=== PATIENT | male | born 1980 | race Caucasian/White ===

== ENCOUNTER 2019-08-29 18:16 | Outpatient (CLI) | payer BC, SELFPAY ==
[2019-08-29 18:51] LABS: Basophils Absolute Auto 0.08 K/mm3 (0.00-0.10); Basophils Percent Auto 0.7 % (0.0-1.0); Eosinophils Absolute Auto 0.21 K/mm3 (0.02-0.50); Eosinophils Percent Auto 1.9 % (1.0-6.0); Hematocrit 47.5 % (40.0-54.0); Hemoglobin 16.7 g/dL (14.0-18.0); Immature Granulocyte Absolute 0.05 K/mm3 (0.00-0.00); Immature Granulocyte Percent A 0.5 % (0.0-0.0); Lymphocytes Absolute Auto 1.81 K/mm3 (1.10-4.50); Lymphocytes Percent Auto 16.6 % (18.0-42.0); Mean Corpuscular HGB Conc 35.2 g/dL (32.0-36.0); Mean Corpuscular Hemoglobin 31.9 pg (27.0-31.0); Mean Corpuscular Volume 90.6 fL (78.0-102.0); Mean Platelet Volume 9.7 fl (8.7-11.0); Monocytes Absolute Auto 0.77 K/mm3 (0.10-0.90); Monocytes Percent Auto 7.1 % (2.0-11.0); Neutrophils Percent Auto 73.2 % (50.0-70.0); Platelet Count Result 252 K/mm3 (150-420); Red Blood Count 5.24 M/mm3 (4.70-6.10); Red Cell Distribution Width 12.2 % (11.6-14.4); White Blood Count 10.9 K/mm3 (4.8-10.8)
[2019-08-29 20:02] LABS: Alanine Aminotransferase 51 U/L (16-63); Albumin Level 3.7 g/dL (3.4-5.0); Alkaline Phosphatase 77 U/L (46-116); Anion Gap 14.9 mmol/L (7-16); Aspartate Amino Transferase 24 U/L (15-37); Bilirubin,Total 0.4 mg/dL (0.00-1.00); Blood Urea Nitrogen 13 mg/dL (7-18); Calcium 8.9 mg/dL (8.5-10.1); Carbon Dioxide 26 mmol/L (21-32); Chloride 103 mmol/L (98-108); Cholesterol 193 mg/dL (0-200); Estimated Glomerular Filt Rate > 60; Glucose 99 mg/dL (70-99); HDL Direct 46 mg/dL (40-60); LDL Cholesterol Calculated 115 mg/dL (<130); Osmolality Calculated 290 mOsm/kg (285-295); Potassium 3.9 mmol/L (3.5-5.1); Prostate Specific Antigen 0.7 ng/mL (< OR = 4.0); Sodium 140 mmol/L (136-145); Thyroid Stimulating Hormone 0.85 uIU/mL (0.36-3.74); Total Protein 7.1 g/dL (6.4-8.2); Triglycerides 161 mg/dL (0-150); Vitamin B12 1243 pg/mL (193-986)
[2019-09-03 12:39] LABS: Testosterone Free 83.5 pg/mL (35.0-155.0); Testosterone Total 580 ng/dL (250-1100)
[2019-09-07 19:09] LABS: Estradiol, Ultrasensitive 20 pg/mL (< OR = 29)
== END 2019-08-29 18:17 | disposition home or self-care (01) ==
LOC: CHSLAB 18:29
PROVIDERS: PCP Family Medicine; Visit Provider Family Medicine
DX: R53.83 Other fatigue (principal); I10 Essential (primary) hypertension; Z80.42 Family history of malignant neoplasm of prostate
CPT/HCPCS: 36415; 80053; 80061; 82607; 82670; 84153; 84402; 84403; 84443; 85025

== ENCOUNTER 2020-06-26 17:05 | Outpatient (CLI) | payer BC, SELFPAY ==
[2020-06-26 17:17] LABS: Basophils Absolute Auto 0.08 K/mm3 (0.00-0.10); Basophils Percent Auto 0.5 % (0.0-1.0); Eosinophils Absolute Auto 0.55 K/mm3 (0.02-0.50); Eosinophils Percent Auto 3.7 % (1.0-6.0); Hematocrit 48.6 % (40.0-54.0); Hemoglobin 16.6 g/dL (14.0-18.0); Immature Granulocyte Absolute 0.05 K/mm3 (0.00-0.00); Immature Granulocyte Percent A 0.3 % (0.0-0.0); Lymphocytes Absolute Auto 3.69 K/mm3 (1.10-4.50); Lymphocytes Percent Auto 25.1 % (18.0-42.0); Mean Corpuscular HGB Conc 34.2 g/dL (32.0-36.0); Mean Corpuscular Hemoglobin 31.3 pg (27.0-31.0); Mean Corpuscular Volume 91.7 fL (78.0-102.0); Mean Platelet Volume 9.6 fl (8.7-11.0); Monocytes Absolute Auto 1.25 K/mm3 (0.10-0.90); Monocytes Percent Auto 8.5 % (2.0-11.0); Neutrophils Absolute Auto 9.1 K/mm3 (1.7-7.2); Neutrophils Percent Auto 61.9 % (50.0-70.0); Platelet Count Result 289 K/mm3 (150-420); White Blood Count 14.7 K/mm3 (4.8-10.8)
[2020-06-26 18:25] LABS: Alanine Aminotransferase 36 U/L (16-63); Albumin Level 3.9 g/dL (3.4-5.0); Alkaline Phosphatase 82 U/L (46-116); Anion Gap 10 mmol/L (8-16); Aspartate Amino Transferase 17 U/L (15-37); Bilirubin,Total 0.6 mg/dL (0.00-1.00); Blood Urea Nitrogen 14 mg/dL (7-18); Calcium 9.5 mg/dL (8.5-10.1); Carbon Dioxide 26 mmol/L (21-32); Chloride 103 mmol/L (98-108); Cholesterol 210 mg/dL (0-200); Estimated Glomerular Filt Rate > 60; Glucose 91 mg/dL (70-99); HDL Direct 56 mg/dL (40-60); LDL Cholesterol Calculated 129 mg/dL (<130); Osmolality Calculated 288 mOsm/kg (285-295); Potassium 3.8 mmol/L (3.5-5.1); Sodium 139 mmol/L (136-145); Thyroid Stimulating Hormone 0.98 uIU/mL (0.36-3.74); Total Protein 7.5 g/dL (6.4-8.2); Triglycerides 126 mg/dL (0-150); Vitamin B12 755 pg/mL (193-986)
[2020-06-30 12:00] LABS: Testosterone Free 109.9 pg/mL (35.0-155.0); Testosterone Total 691 ng/dL (250-1100)
[2020-07-01 22:16] LABS: Estradiol, Ultrasensitive 28 pg/mL (< OR = 29)
== END 2020-06-26 17:06 | disposition home or self-care (01) ==
LOC: CHSLAB 17:08
PROVIDERS: PCP Family Medicine; Visit Provider Family Medicine
DX: E78.5 Hyperlipidemia, unspecified (principal); I10 Essential (primary) hypertension; R53.83 Other fatigue
CPT/HCPCS: 36415; 80053; 80061; 82607; 82670; 84402; 84403; 84443; 85025

== ENCOUNTER 2020-10-29 17:46 | Emergency (ER) | payer BC, SELFPAY ==
--- NOTE | ~2020-10-29 | CT_ITS ---
EXAMINATION: CT abdomen pelvis w con EXAM DATE: 10/29/2020 19:41 INDICATION: Epigastric pain since this morning. TECHNIQUE: Spiral CT of the abdomen and pelvis was performed following intravenous injection of 100 m L Omnipaque 350. Axial, coronal and sagittal images of the abdomen and pelvis were reviewed. The do se-length product (DLP) for this examination was 1075.45 mGy-cm. The exposure was tailored according to patient size (auto mA exposure control), and iterative reconstruction (ASIR) was used as addition al dose reduction technique. There is no prior study for comparison. FINDINGS: There is hyperdense retroperitoneal fluid, density suggests this is acute hemorrhage. This extends into the right colic gutter. It measures maximally 4 cm in thickness, by about [address] There is no active extravasation identified, however there is a 5 mm round arterially enhancing region which could be an arterial aneurysm located along the medial aspect of the pancreatic uncinate process, pancreatic duodenal branch. Finding has been indicated on axial image 70, coronal images 53 -55. Uncertain whether or not this is the source of hemorrhage. IVC still has maintained its caliber, and reportedly patient is not anemic. Small amount of free pelvic fluid with layering protein. Aorta is normal in caliber. The liver, spleen, adrenal glands and pancreas are unremarkable. Gallbla dder is unremarkable. No biliary obstruction. Portal and splenic veins are patent. Kidneys enhance symmetrically. There is no hydronephrosis. The prostate is unremarkable. The bladder is unremark able. There is no retroperitoneal or pelvic lymphadenopathy. There is mild scattered arteriosclero tic disease. Small bilateral inguinal fat-containing hernias. The appendix is normal. The stomach and small bowel are unremarkable. There is expected amount of c olonic stool. No free intraperitoneal gas. The heart is normal in size. There are no pericardial or pleural effusions. The lung bases are unremarkable. There are no osteoblastic or osteolytic les ions identified. 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 I discussed this case with Dontrell Tolbert MD at 10/29/2020 20:07 CDT. Reviewed, dictated and finalized at location A. 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 I discussed this case with Dontrell Tolbert MD at 10/29/2020 20:07 CDT.
--- NOTE | 2020-10-29 17:50 | ED.ABDPAIN ---
HPI - Abdominal Pain General Chief Complaint: Abdominal Pain Stated Complaint: abd pain Source: patient and RN notes reviewed Mode of arrival: ambulatory Limitations: no limitations History of Present Illness HPI narrative: patient states started about 430 this morning with upper abdominal pain. Said he would get cold and clammy when the pain came on but otherwise no shortness of breath or chest pain. Denies nausea vomiting diarrhea constipation. he has not tried to eat today as he just has not felt like it. MD elicited complaint: abdominal pain Pertinent past history: none Onset (ago): hour(s) (12) Pain Consistency: intermittent Location: RUQ Severity: moderate Radiation: none Migration to: no migration Exacerbating factors: nothing Relieving factors: nothing Associated symptoms: denies other symptoms Related Data Home Medications Medication Instructions Recorded Confirmed amoxicillin-pot clavulanate See Rx Instructions .ROUTE .COMPLEX 10/29/20 10/29/20 [Augmentin] anastrozole [Arimidex] 1 mg PO DAILY 10/29/20 10/29/20 losartan [Cozaar] See Rx Instructions .ROUTE .COMPLEX 10/29/20 10/29/20 Allergies Allergy/AdvReac Type Severity Reaction Status Date / Time No Known Allergies Allergy Verified 10/29/20 17:58 Review of Systems Review of Systems: All systems reviewed & are unremarkable except as noted in HPI and below Constitutional: Constitutional: Denies chills and Denies fever(s) Cardiovascular: Cardiovascular: Denies chest pain Respiratory: Respiratory: Denies dyspnea Gastrointestinal: Gastrointestinal: Denies constipation, Denies diarrhea, Denies nausea and Denies vomiting Genitourinary: Genitourinary: Denies dysuria and Denies urinary frequency [facility] Past Medical History Medical History (Updated 10/29/20 @ 21:13 by Dontrell Toblert MD) Hypertension Low testosterone in male Surgical History Surgical History (Updated 10/29/20 @ 18:17 by Dontrell Tolbert MD) History of tonsillectomy and adenoidectomy Social History Social History (Updated 10/29/20 @ 18:18 by Dontrell Tolbert MD) Smoking packs per day: 1 Smoking cigarettes per day: 20.0 Smoking status: Current every day smoker Tobacco type: cigarettes Alcohol intake: current Alcohol use details: daily Substance use: never Gender identity (if verbalized by the patient): Male Exam Const: General: healthy appearing and no acute distress Nutritional Appearance: well nourished and obese centrally obese Orientation/consciousness: patient oriented x3 HENMT: Head: normal to inspection Ears: external ears normal Eyes: Conjunctivae: conjunctivae normal Pupils: Equal, round and reactive pupils present EOM: EOMs intact bilaterally Neck: Neck: normal visual inspection Resp: Effort & Inspection: normal respiratory effort Auscultation: clear to auscultation bilaterally Cardio: Rate: regular rate Rhythm: regular rhythm GI: Inspection: obesity GI Palp: Yes Soft to palpation, Yes Tenderness to palpation present (GI) ( LUQ and RUQ moderate), No Guarding due to palpation present (GI) and No Rebound tenderness present Auscultation: normal bowel sounds Back/Spine/Pelvis: Cervical Spine: cervical ROM normal Thoracic/Lumbar Spine: thoraco-lumbar ROM normal Skin: General skin exam: normal color Rashes: no rashes Neuro: General: patient oriented x3, moves all extremities, no meningeal signs and no focal motor deficits Speech: normal speech Gait exam (Neuro): Normal gait present Extrem: General: normal to inspection and no clubbing, cyanosis or edema Psych: Appearance: grossly normal and well kempt Mental Status: mental status grossly normal Affect: normal affect Attitude: cooperative Thought content: Yes Normal thought content present Course Course Emergency Course: I spoke with Dr. Franklin, interventional radiologist. He spoke with hospitalist Dr. Booth who accepted the patient in transfer. Vital Signs Vital
[2020-10-29 17:55] VITALS: BP 156/90; PULSE 90; RESP 18; TEMP 37.2; O2SAT 97
[2020-10-29 18:16] LABS: Basophils Absolute Auto 0.07 K/mm3 (0.00-0.10); Basophils Percent Auto 0.5 % (0.0-1.0); Eosinophils Absolute Auto 0.08 K/mm3 (0.02-0.50); Eosinophils Percent Auto 0.5 % (1.0-6.0); Hemoglobin 14.3 g/dL (14.0-18.0); Immature Granulocyte Absolute 0.08 K/mm3 (0.00-0.00); Immature Granulocyte Percent A 0.5 % (0.0-0.0); Lymphocytes Absolute Auto 2.51 K/mm3 (1.10-4.50); Lymphocytes Percent Auto 16.6 % (18.0-42.0); Mean Corpuscular Hemoglobin 31.1 pg (27.0-31.0); Mean Corpuscular Volume 91.3 fL (78.0-102.0); Mean Platelet Volume 9.8 fl (8.7-11.0); Monocytes Absolute Auto 1.24 K/mm3 (0.10-0.90); Monocytes Percent Auto 8.2 % (2.0-11.0); Neutrophils Absolute Auto 11.1 K/mm3 (1.7-7.2); Neutrophils Percent Auto 73.7 % (50.0-70.0); Platelet Count Result 252 K/mm3 (150-420); Red Cell Distribution Width 12.3 % (11.6-14.4); White Blood Count 15.1 K/mm3 (4.8-10.8)
[2020-10-29 18:17] LABS: Add Urine Microscopic? YES; Appearance Urine Clear (Clear); Bilirubin Urine 1+ (Negative); Blood Urine Negative (Negative); Color Urine Yellow (Yellow); Glucose Urine UA Negative (Negative); Ketones Urine Negative (Negative); Leukocyte Esterase Ur Negative LEU/UL (Negative); Nitrate Urine Negative (Negative); Protein Urine 1+ (Negative); Specific Grav Ur >= 1.030 (1.010-1.020); Urobilinogen Urine 0.2 mg/dL (0.2-1.0)
[2020-10-29 18:23] LABS: Bacteria Urine Trace /hpf; Mucus Urine Moderate /lpf; RBC Urine 0-2 /hpf (0-2); Squamous Epithelial Cell Urine Rare /hpf (Few)
[2020-10-29 18:29] VITALS: BP 152/90; PULSE 90; RESP 18; O2SAT 96
[2020-10-29 18:33] LABS: Alanine Aminotransferase 40 U/L (16-63); Albumin Level 3.5 g/dL (3.4-5.0); Alkaline Phosphatase 71 U/L (46-116); Anion Gap 11 mmol/L (8-16); Aspartate Amino Transferase 13 U/L (15-37); Bilirubin,Total 0.6 mg/dL (0.00-1.00); Blood Urea Nitrogen 16 mg/dL (7-18); Calcium 8.6 mg/dL (8.5-10.1); Carbon Dioxide 25 mmol/L (21-32); Chloride 101 mmol/L (98-108); Estimated CRCL calculation 69 ml/min; Estimated Glomerular Filt Rate > 60; Glucose 107 mg/dL (70-99); Lipase 131 U/L (73-393); Osmolality Calculated 285 mOsm/kg (285-295); Potassium 3.2 mmol/L (3.5-5.1); Sodium 137 mmol/L (136-145)
[2020-10-29 18:38] LABS: Lactic Acid Reflex 1.2 mmol/L (0.4-2.0)
[2020-10-29] MEDS: MAG HYDROX/ALUMINUM HYD/SIMETH 30 ML, PHENobarb/HYOSCY/ATROPINE/SCOP 32.4 MG, LIDOCAINE... PO (18:53)
--- NOTE | 2020-10-29 20:20 | PC.NURSE ---
pt request [facility], called transfer line
[2020-10-29 21:35] VITALS: BP 152/96; PULSE 91; RESP 18; O2SAT 97
[2020-10-29 21:56] VITALS: BP 151/96; PULSE 92; RESP 18; TEMP 36.6; O2SAT 97
== END 2020-10-29 21:57 | disposition short-term general hospital (02) ==
PROVIDERS: Emergency Provider Emergency Medicine; PCP Family Medicine
DX: R58 Hemorrhage, not elsewhere classified (principal)
CPT/HCPCS: 36415; 74177; 80053; 81001; 83605; 83690; 85025; 86140; 99285; A9270; Q9967

== ENCOUNTER 2020-11-11 04:23 | Emergency (ER) | payer BC, SELFPAY ==
--- NOTE | ~2020-11-11 | CT_ITS ---
EXAMINATION: CT brain wo con DATE: 11/11/2020 05:47 INDICATION: Syncope and fall with head injury TECHNIQUE: Computed tomography (CT) of the head was performed without intravenous contrast. Sagittal and coronal reconstructions were performed. The mA was adjusted according to patient size. Iterative reconstruction technique was employed. The dose-length product was 605.33 mGy-cm. COMPARISON: None FINDINGS: Acute appearing right nasal bone fracture with up to 3 mm inward buckling of the fractured right nasa l bone. There also appears to be minimally displaced fracture along the anterior margin of the nasal septum with chronic rightward deviation of the septum. Old fracture of the superior rim of the left o rbit and anterior table of the left frontal sinus with malleable plate and screw fixation along the a nterior wall of the left frontal sinus. Mucosal thickening in the bilateral ethmoid sinuses. Small am ount of dependent mucus or blood in the left sphenoid sinus. No calvarial fracture. No acute intracranial hemorrhage, acute infarction or abnormal extra axial flu id collection. Ventricles are normal and symmetric. No mass/mass effect. Mastoid air cells and middle ear cavities are clear. IMPRESSION: 1. Acute appearing mildly depressed right nasal bone fracture and minimally displaced fracture at the anterior nasal septum. 2. No calvarial fracture or acute intracranial process. Reviewed, dictated and finalized at location A. IMPRESSION: 1. Acute appearing mildly depressed right nasal bone fracture and minimally dis placed fracture at the anterior nasal septum. 2. No calvarial fracture or acute intracranial process.
--- NOTE | ~2020-11-11 | CT_ITS ---
EXAMINATION: CTA abdomen pelvis DATE: 11/11/2020 05:48 INDICATION: Recent arterial aneurysm status post ablation, abdominal pain TECHNIQUE: Computed tomographic angiography (CTA) of the abdomen and pelvis was performed without and with 100 mL Omnipaque-350 intravenous contrast. Maximum intensity projection 3D-reconstructions of t he aorta and other arteries were constructed by the technologist on a separate workstation. The dose- length product (DLP) was 1414.21 mGy-cm. Automated exposure control and iterative reconstruction tech nique were employed. COMPARISON: None. FINDINGS: Minimal dependent atelectasis is present in the lung bases. The heart size is normal. A ralph cified left lower lobe nodule and calcified bilateral hilar and subcarinal lymph nodes are consistent with old granulomatous disease. Punctate calcifications in otherwise normal appearing liver and sple en likely represent healed granulomatous disease. The pancreas, gallbladder, kidneys, and adrenal gla nds are normal. There has been interval embolization of the pancreaticoduodenal artery. There is a pe rsistent retroperitoneal hematoma with interval decrease in size. There is calcified atherosclerosis of the aorta without hemodynamically significant stenosis. There is no aneurysm or dissection of the aorta. The celiac axis, superior mesenteric artery, and inferior mesenteric artery are unremarkable. Single renal arteries are present. There is mild atherosclerosis of the common iliac arteries without hemodynamically significant stenosis. There is mild atherosclerosis of the left femoral artery witho ut hemodynamically significant stenosis. No pathologically enlarged abdominal or pelvic lymph nodes a re identified. There is no free intraperitoneal gas or evidence of bowel obstruction. IMPRESSION: 1. Interval embolization of the pancreaticoduodenal artery with decrease in size of the retroperitone al hematoma. No acute findings. Reviewed, dictated and finalized at location A. IMPRESSION: 1. Interval embolization of the pancreaticoduodenal artery with decrease in siz e of the retroperitoneal hematoma. No acute findings.
[2020-11-11 04:35] VITALS: BP 101/69; PULSE 78; RESP 20; TEMP 36.6; O2SAT 100
--- NOTE | 2020-11-11 04:41 | ECG_ITS ---
Measurements Intervals [place] Rate: 75 P: 70 MI: 188 QRS: 15 QRSD: 116 T: 25 QT: 401 QTc: 448 Interpretive Statements SINUS RHYTHM INCOMPLETE RIGHT BUNDLE BRANCH BLOCK BORDERLINE ECG Electronically Signed On 11-12-2020 7:18:00 CDT by Kwadwo Osborne D.O.
[2020-11-11 04:45] VITALS: BP 99/69; PULSE 73
[2020-11-11 04:46] VITALS: BP 102/72; PULSE 83
--- NOTE | 2020-11-11 04:46 | ED.SYNCOPE ---
HPI - Syncope General Chief Complaint: Syncope Stated Complaint: Fall Time Seen by Provider: 11/11/20 04:46 Source: patient and family Mode of arrival: ambulatory Limitations: no limitations History of Present Illness HPI narrative: 39-year-old man comes in today complaining of lightheadedness and a fall that occurred early this morning. Patient states that he had been sitting out on his porch drinking alcohol when he stood up, walked over to the bug zapper to turn it off when he felt lightheaded, fell forward onto his face, and felt weak in his upper extremities such that he could not get himself up for several minutes. He denies numbness, tingling, difficulty walking, headache, vomiting, hematochezia, shortness of breath or chest pain. approximately 1 week ago the patient was seen for an abdominal aneurysm that was sent to [place] for coil embolization. He had a retroperitoneal bleed. MD complaint: almost passed out Onset (ago): hour(s) (1) -: minutes(s) Prodromal symptoms: lightheaded Witnessed: Yes - by Bystander Context: standing up Injuries sustained associated with event: face Current symptoms: weakness History: other ( Abdominal aneurysm status post coil ablation) Treatments prior to arrival: none Related Data Home Medications Medication Instructions Recorded Confirmed anastrozole [Arimidex] 1 mg PO DAILY 10/29/20 11/11/20 losartan [Cozaar] See Rx Instructions .ROUTE .COMPLEX 10/29/20 11/11/20 amlodipine 10 mg PO DAILY 11/11/20 11/11/20 Allergies Allergy/AdvReac Type Severity Reaction Status Date / Time No Known Allergies Allergy Verified 10/29/20 17:58 Review of Systems Constitutional: Constitutional: Denies chills, Denies fever(s) and Reports weakness Eyes: Eyes: Denies change in vision and Denies photophobia ENT: Denies dysphagia, Denies nasal congestion and Denies sore throat Cardiovascular: Cardiovascular: Denies chest pain and Denies radiating jaw, neck or arm pain Respiratory: Respiratory: Denies chest congestion, Denies cough and Denies dyspnea Gastrointestinal: Gastrointestinal: Denies abdominal pain, Denies diarrhea, Denies nausea and Denies vomiting Genitourinary: Genitourinary: Denies dysuria and Denies urinary frequency Musculoskeletal: Musculoskeletal: Denies arthralgias and Denies joint swelling Integumentary/Breasts: Skin/Breast: Denies pruritus, Denies erythema and Denies rash Neurologic: Reports as per HPI, Reports dizziness, Denies headache(s), Denies focal weakness and Denies numbness Hematologic/Lymphatic: Hematologic/Lymphatic: Denies easy bleeding and Denies easy bruising Allergic/Immunologic: Allergic/Immunologic: Denies lip swelling and Denies throat swelling PMFSH Past Medical History Medical History 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 Hypertension Low testosterone in male Surgical History Surgical History History of tonsillectomy and adenoidectomy Family History Family History (Updated 11/12/20 @ 00:42 by Dontrell Mcclellan MD) Other Family history non-contributory Social History Social History Smoking packs per day: 1 Smoking cigarettes per day: 20.0 Smoking status: Current every day smoker Tobacco type: cigarettes Alcohol intake: current Substance use: never Gender identity (if verbalized by the patient): Male Exam Const: General: healthy appearing, no acute distress and alert Orientation/consciousness: patient oriented x3 Limitations: no limitations HENMT: Head: contusion Ears: external ears normal, TM's normal bilaterally and EAC's normal General nose exam: Normal nares present and no epistaxis Face and sinus: no sinus tenderness Mouth: Yes moist mucous membranes Throat: posterior oropharynx normal Other: Abrasion, tenderness and swelling over the nasal bridge w
[2020-11-11 04:58] LABS: Basophils Absolute Auto 0.07 K/mm3 (0.00-0.10); Basophils Percent Auto 0.5 % (0.0-1.0); Eosinophils Absolute Auto 0.39 K/mm3 (0.02-0.50); Eosinophils Percent Auto 2.7 % (1.0-6.0); Hematocrit 36.5 % (40.0-54.0); Hemoglobin 12.3 g/dL (14.0-18.0); Immature Granulocyte Absolute 0.22 K/mm3 (0.00-0.00); Immature Granulocyte Percent A 1.5 % (0.0-0.0); Lymphocytes Absolute Auto 3.07 K/mm3 (1.10-4.50); Lymphocytes Percent Auto 21.1 % (18.0-42.0); Mean Corpuscular HGB Conc 33.7 g/dL (32.0-36.0); Mean Corpuscular Hemoglobin 31.1 pg (27.0-31.0); Mean Corpuscular Volume 92.4 fL (78.0-102.0); Monocytes Absolute Auto 1.08 K/mm3 (0.10-0.90); Monocytes Percent Auto 7.4 % (2.0-11.0); Neutrophils Absolute Auto 9.8 K/mm3 (1.7-7.2); Neutrophils Percent Auto 66.8 % (50.0-70.0); Platelet Count Result 380 K/mm3 (150-420); Red Blood Count 3.95 M/mm3 (4.70-6.10); Red Cell Distribution Width 12.3 % (11.6-14.4); White Blood Count 14.6 K/mm3 (4.8-10.8)
[2020-11-11] MEDS: SODIUM CHLORIDE 0.9% IV 1,000 ML 999 ML IV CONT (05:05)
[2020-11-11 05:12] LABS: Alanine Aminotransferase 29 U/L (16-63); Alkaline Phosphatase 79 U/L (46-116); Anion Gap 10 mmol/L (8-16); Aspartate Amino Transferase 18 U/L (15-37); Bilirubin,Total 0.2 mg/dL (0.00-1.00); Blood Urea Nitrogen 10 mg/dL (7-18); Calcium 8.6 mg/dL (8.5-10.1); Carbon Dioxide 26 mmol/L (21-32); Chloride 101 mmol/L (98-108); Estimated CRCL calculation 91 ml/min; Estimated Glomerular Filt Rate > 60; Glucose 118 mg/dL (70-99); Osmolality Calculated 284 mOsm/kg (285-295); Potassium 3.9 mmol/L (3.5-5.1); Prothrombin Time 10.5 Seconds (9.50-12.10); Sodium 137 mmol/L (136-145); Total Protein 7.2 g/dL (6.4-8.2)
[2020-11-11 05:17] LABS: Lactic Acid Reflex 2.1 mmol/L (0.4-2.0)
[2020-11-11 05:33] LABS: Appearance Urine Clear (Clear); Bilirubin Urine Negative (Negative); Color Urine Yellow (Yellow); Glucose Urine UA Negative (Negative); Ketones Urine Negative (Negative); Leukocyte Esterase Ur Negative LEU/UL (Negative); Nitrate Urine Negative (Negative); Protein Urine 1+ (Negative); Specific Grav Ur <= 1.005 (1.010-1.020); Urobilinogen Urine 0.2 mg/dL (0.2-1.0)
[2020-11-11 05:39] LABS: Add Urine Microscopic? YES; Blood Urine Trace-Intact (Negative)
[2020-11-11 05:40] LABS: Bacteria Urine 3+ /hpf; RBC Urine 0-2 /hpf (0-2); Squamous Epithelial Cell Urine None seen /hpf (Few); WBC Urine 0-3 /hpf (0-3)
[2020-11-11 05:42] LABS: Troponin I < 4.0 ng/L (0.00-60.4)
[2020-11-11 06:32] VITALS: BP 123/79; PULSE 84; RESP 18; O2SAT 99
--- NOTE | 2020-11-11 06:44 | PC.NURSE ---
Call placed to [facility] Hospitalist or surgeon. Pts. states his that did his surgery repair 2 wks ago is located here and requests to transfer here if needed.
--- NOTE | 2020-11-11 07:19 | PC.NURSE ---
Call back from [facility], will await call from hospitalist. Report given to Namrata Martinez
--- NOTE | 2020-11-11 07:32 | PC.NURSE ---
Call back from [facility]. Dr Giordano, speaking c Dr. Mcclellan. Will call back p looking at CT that was pushed to them.
[2020-11-11 07:53] LABS: Reflex Lactic Acid Yes or No Add Lactic
--- NOTE | 2020-11-11 08:09 | PC.NURSE ---
Call back from radiologist at [facility], Spoke c Dr Mcclellan about CT report and orders received. ERP spoke c pt. about admission for obs. due to syncopal episode. Pt. refusing to stay even p ERP spoke c pt. and risks/benefits explained. Pt. adamet about leaving and going home, wants paperwork to sign.
--- NOTE | 2020-11-11 08:19 | ED.SYNCOPE ---
HPI - Syncope General Chief Complaint: Syncope Stated Complaint: Fall Time Seen by Provider: 11/11/20 04:46 Source: patient and family Mode of arrival: ambulatory Limitations: no limitations History of Present Illness HPI narrative: This gentleman came in after a syncopal episode. He was seen initially and evaluated by Dr. Sanchez. He had a syncopal episode minutes before coming in. He had been drinking alcohol and atates she had a brief syncopal episode when bending over to unplug a light. He told me the episode lasted very briefly: seconds long. He had told Dr. Sanchez this lasted much longer, and he was not moving well for some minutes. It is unclear as to if he was significantly impaired at the time of the syncope, such that he cannot give an accurate history. He states he has felt presyncopal of and on at times, prior to coming in. He denies feeling his heart racing or other symptoms such as shortness of breath, chest pain, cough, fever, chills, feeling the need to have a bowel movement or straining to fart, or have a BM. He does state he was just started on Norvasc for hypertension. MD complaint: almost passed out Prodromal symptoms: lightheaded Context: standing up Injuries sustained associated with event: face Current symptoms: weakness Treatments prior to arrival: none Related Data Home Medications Medication Instructions Recorded Confirmed anastrozole [Arimidex] 1 mg PO DAILY 10/29/20 11/11/20 losartan [Cozaar] See Rx Instructions .ROUTE .COMPLEX 10/29/20 11/11/20 amlodipine 10 mg PO DAILY 11/11/20 11/11/20 Allergies Allergy/AdvReac Type Severity Reaction Status Date / Time No Known Allergies Allergy Verified 10/29/20 17:58 Review of Systems Constitutional: Constitutional: Reports no additional constitutional complaints Eyes: Eyes: Reports no additional eye complaints ENT: Reports system reviewed and no additional complaints, except as documented Cardiovascular: Cardiovascular: Reports no additional cardiovascular complaints Respiratory: Respiratory: Reports no additional respiratory complaints Gastrointestinal: Gastrointestinal: Reports no additional gastrointestinal complaints Genitourinary: Genitourinary: Reports no additional male genitourinary complaints Musculoskeletal: Musculoskeletal: Reports no additional musculoskeletal complaints Integumentary/Breasts: Skin/Breast: Reports system reviewed and no additional complaints, except as docu Neurologic: Reports syncope Comments: presyncopal sensation Psychiatric: Psychiatric: Reports no additional psychiatric complaints Endocrine: Endocrine: Reports no additional endocrine complaints Hematologic/Lymphatic: Hematologic/Lymphatic: Reports no additional hematologic/lymphatic complaints Allergic/Immunologic: Allergic/Immunologic: Reports no additional allergic/immunologic complaints PMFSH Past Medical History Medical History 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 Hypertension Low testosterone in male Surgical History Surgical History History of tonsillectomy and adenoidectomy Family History Family History (Updated 11/12/20 @ 00:42 by Dontrell Mcclellan MD) Other Family history non-contributory Social History Social History Smoking packs per day: 1 Smoking cigarettes per day: 20.0 Smoking status: Current every day smoker Tobacco type: cigarettes Alcohol intake: current Substance use: never Gender identity (if verbalized by the patient): Male Exam Const: General: healthy appearing and no acute distress Nutritional Appearance: well nourished Orientation/consciousness: patient oriented x3 HENMT: Head: normal to inspection Ears: external ears normal General nose exam: Normal external nose present Mouth: Yes Normal oral and palatal mucosa prese
[2020-11-11 08:20] VITALS: BP 98/55; PULSE 80; RESP 18; TEMP 36.8; O2SAT 98
[2020-11-11 08:24] LABS: Lactic Acid 2.4 mmol/L (0.4-2.0)
== END 2020-11-11 08:25 | disposition left against medical advice (07) ==
PROVIDERS: Emergency Medicine; Emergency Provider Emergency Medicine; PCP Family Medicine
DX: R55 Syncope and collapse (principal)
CPT/HCPCS: 36415; 70450; 74174; 80053; 81001; 83605; 84484; 85025; 85610; 85730; 93005; 96360; 99284; J7030; Q9967

== ENCOUNTER 2021-01-15 15:26 | Outpatient (CLI) | payer BC, SELFPAY ==
[2021-01-15 16:14] LABS: Cholesterol 192 mg/dL (0-200); HDL Direct 55 mg/dL (40-60); LDL Cholesterol Calculated 107 mg/dL (<130); Triglycerides 149 mg/dL (0-150)
== END 2021-01-15 15:27 | disposition home or self-care (01) ==
LOC: CHSLAB 15:29
PROVIDERS: PCP Family Medicine; Visit Provider Family Medicine
DX: I10 Essential (primary) hypertension (principal)
CPT/HCPCS: 36415; 80061

== ENCOUNTER 2021-02-08 09:32 | Outpatient (CLI) | payer BC, SELFPAY ==
[2021-02-08 10:29] LABS: SARS-CoV-2 RNA PCR Positive (Negative)
== END 2021-02-08 09:33 | disposition home or self-care (01) ==
LOC: CHSLAB 09:35
PROVIDERS: PCP Family Medicine; Visit Provider Family Medicine
DX: U07.1 COVID-19 (principal); R43.0 Anosmia
CPT/HCPCS: C9803; U0003; U0005

== ENCOUNTER 2021-05-24 23:18 | Observation (INO) | payer OTHER, SELFPAY ==
--- NOTE | ~2021-05-24 | XR_ITS ---
EXAMINATION: XR chest 1V portable DATE: 05/25/2021 00:05 INDICATION: Syncope TECHNIQUE: frontal view of the chest was obtained. COMPARISON: None FINDINGS: Calcified nodules in the left midlung zone consistent with old granulomatous disease. Mild streaky le ft basilar atelectasis versus less likely pneumonia. No pulmonary edema, pleural effusion or pneumoth orax. The cardiomediastinal silhouette is normal. Visualized bones and soft tissues are unremarkable. IMPRESSION: 1. Mild streaky left basilar opacities and favor atelectasis over pneumonia. Reviewed, dictated and finalized at location A. AIGN WORKER
--- NOTE | ~2021-05-24 | CT_ITS ---
EXAMINATION: CT brain wo con DATE: 05/25/2021 00:05 INDICATION: Dizziness. Syncope. TECHNIQUE: Computed tomography (CT) of the head was performed without intravenous contrast. Sagittal and coronal reconstructions were performed. The mA was adjusted according to patient size. Iterative reconstruction technique was employed. The dose-length product was 605.33 mGy-cm. COMPARISON: head CT dated 11/11/2020 FINDINGS: No acute intracranial hemorrhage, acute infarction or abnormal extra axial fluid collection. Ventricl es are normal and symmetric. No mass/mass effect. Mucosal thickening in the left frontal, bilateral e thmoid and sphenoid sinuses with some bubbly mucus in the left sphenoid sinus. Mesh repair along the anterior wall of the left frontal sinus. The orbits and mastoid air cells are normal. IMPRESSION: 1. Normal brain. No acute intracranial process. Reviewed, dictated and finalized at location A. F INVESTMENT OFFICER
--- NOTE | 2021-05-24 23:34 | ECG_ITS ---
Measurements Intervals [place] Rate: 80 P: 66 AR: 186 QRS: 3 QRSD: 107 T: 30 QT: 385 QTc: 447 Interpretive Statements SINUS RHYTHM INCOMPLETE RIGHT BUNDLE BRANCH BLOCK BORDERLINE ECG Electronically Signed On 05-25-2021 7:04:11 SUPERVISOR RECORD [employer]ESS by Kwadwo Osborne D.O.
[2021-05-24 23:36] VITALS: BP 119/57; PULSE 79; RESP 16; TEMP 36.9; O2SAT 100
--- NOTE | 2021-05-24 23:38 | ED.SYNCOPE ---
HPI - Syncope General Chief Complaint: Syncope Stated Complaint: syncope episode Time Seen by Provider: 05/24/21 23:38 Source: patient Mode of arrival: ambulatory Limitations: no limitations History of Present Illness HPI narrative: 40-year-old male with a past history of ex smoking,aortic aneurysm status post aortic occlusion with coils , hypertension developed -- abdominal discomfort radiating to the chest. No nausea/vomiting. No diarrhea. No fever. His symptoms resolved spontaneously. He thought he had hunger pangs. -- After being well for a couple of hours the patient went to a bar and had a couple of drinks. he had his dinner without any problems. He then developed jaw pain with the syncopal spell. He became lightheaded and ease himself to the ground. His color became pale. He felt lightheaded. No chest pain. No focal neuro deficits. Subsequently the EMS was summoned and noted his blood pressure to be 98/70. He received some IV fluids. His symptoms resolved with this he has generalized weakness. MD complaint: felt faint and almost passed out Onset (ago): minute(s) Duration of episode: 30 -: minutes(s) Description of event: focal shaking ( Generalized shaking) and other ( No seizures, incontinence) Prodromal symptoms: lightheaded and shortness of breath Witnessed: Yes - by Bystander Context: standing up ( he felt lightheaded while sitting down and then when he got up his symptoms worsened) Current symptoms: back to baseline History: other ( no prior history of seizures, syncopal spells, CAD.) Treatments prior to arrival: IV fluids Related Data Allergies Allergy/AdvReac Type Severity Reaction Status Date / Time No Known Allergies Allergy Verified 01/29/21 12:41 Review of Systems Review of Systems: All systems reviewed & are unremarkable except as noted in HPI and below Constitutional: Constitutional: Reports lethargy and Reports weakness Eyes: Eyes: Reports no additional eye complaints ENT: Reports system reviewed and no additional complaints, except as documented Cardiovascular: Cardiovascular: Reports no additional cardiovascular complaints Comments: jaw pain without any chest pain Respiratory: Respiratory: Reports dyspnea Gastrointestinal: Gastrointestinal: Reports no additional gastrointestinal complaints Genitourinary: Genitourinary: Reports no additional male genitourinary complaints Musculoskeletal: Musculoskeletal: Reports no additional musculoskeletal complaints Integumentary/Breasts: Skin/Breast: Reports system reviewed and no additional complaints, except as docu Neurologic: Reports system reviewed and no additional complaints, except as documented and Reports syncope Psychiatric: Psychiatric: Reports no additional psychiatric complaints Endocrine: Endocrine: Reports no additional endocrine complaints Hematologic/Lymphatic: Hematologic/Lymphatic: Reports no additional hematologic/lymphatic complaints Allergic/Immunologic: Allergic/Immunologic: Reports no additional allergic/immunologic complaints [facility] Past Medical History Medical History 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 25 pk yr. history Alcohol intake: current Alcohol use details: daily Substance use: never Gender identity (if verbalized by the patient): Male Exam Const: General: cooperative, healthy appearing and comfortable HENMT: Head: n
[2021-05-25] VITALS (7 sets, daily range): BP systolic 120–152; BP diastolic 65–87; PULSE 74–89; RESP 14–18; TEMP 36.4–36.9; O2SAT 99–100; BMI 35.9
[2021-05-25 00:08] LABS: Glucose Point of Care 86 mg/dl (65-105)
[2021-05-25 00:23] LABS: Basophils Absolute Auto 0.06 K/mm3 (0.00-0.10); Basophils Percent Auto 0.7 % (0.0-1.0); Eosinophils Absolute Auto 0.24 K/mm3 (0.02-0.50); Eosinophils Percent Auto 2.7 % (1.0-6.0); Hematocrit 38.2 % (40.0-54.0); Hemoglobin 12.9 g/dL (14.0-18.0); Immature Granulocyte Absolute 0.07 K/mm3 (0.00-0.00); Immature Granulocyte Percent A 0.8 % (0.0-0.0); Lymphocytes Absolute Auto 1.53 K/mm3 (1.10-4.50); Mean Corpuscular HGB Conc 33.8 g/dL (32.0-36.0); Mean Corpuscular Hemoglobin 31.8 pg (27.0-31.0); Mean Corpuscular Volume 94.1 fL (78.0-102.0); Mean Platelet Volume 9.3 fl (8.7-11.0); Monocytes Absolute Auto 0.97 K/mm3 (0.10-0.90); Monocytes Percent Auto 10.8 % (2.0-11.0); Neutrophils Absolute Auto 6.1 K/mm3 (1.7-7.2); Platelet Count Result 216 K/mm3 (150-420); Red Blood Count 4.06 M/mm3 (4.70-6.10); Red Cell Distribution Width 11.9 % (11.6-14.4)
[2021-05-25] MEDS: LACTATED RINGERS 1,000 ML 150 ML (00:24)
[2021-05-25 00:35] LABS: Alanine Aminotransferase 57 U/L (16-63); Albumin Level 3.1 g/dL (3.4-5.0); Alkaline Phosphatase 53 U/L (46-116); Anion Gap 11 mmol/L (8-16); Aspartate Amino Transferase 21 U/L (15-37); Bilirubin,Total 0.2 mg/dL (0.00-1.00); Blood Urea Nitrogen 18 mg/dL (7-18); Calcium 8.2 mg/dL (8.5-10.1); Carbon Dioxide 27 mmol/L (21-32); Chloride 104 mmol/L (98-108); Estimated CRCL calculation 75 ml/min; Estimated Glomerular Filt Rate 50; Glucose 93 mg/dL (70-99); Osmolality Calculated 295 mOsm/kg (285-295); Potassium 3.2 mmol/L (3.5-5.1); Sodium 142 mmol/L (136-145); Total Protein 6.5 g/dL (6.4-8.2)
[2021-05-25 00:38] LABS: Partial Thromboplastin Time 23.9 SEC (23.90-30.70); Prothrombin Time 10.5 Seconds (9.50-12.10)
[2021-05-25 00:45] LABS: D Dimer 0.19 mg/L (0.19-0.50)
[2021-05-25 00:56] LABS: Magnesium 2.4 mg/dL (1.8-2.4); NT Pro B Type Natriuretic Pept 12 pg/mL (0-125); Troponin I 6.2 ng/L (0.00-60.4)
[2021-05-25 02:06] LABS: Cholesterol 184 mg/dL (0-200); HDL Direct 44 mg/dL (40-60); LDL Cholesterol Calculated 87 mg/dL (<130); Triglycerides 263 mg/dL (0-150)
--- NOTE | 2021-05-25 02:56 | PC.NURSE ---
Jeff admitted ot room 203 per stretcher from the ER, is alert and oriented times 4, denies pain at this time.
[2021-05-25 05:40] LABS: Troponin I 7.9 ng/L (0.00-60.4)
[2021-05-25] MEDS: LACTATED RINGERS 1,000 ML 100 ML IV CONT (07:30)
[2021-05-25] MEDS: POTASSIUM CHLORIDE 20 MEQ TABLET 40 MEQ PO (07:50)
[2021-05-25] MEDS: ASPIRIN 81 MG CHEWABLE TABLET PO (08:00)
--- NOTE | 2021-05-25 10:07 | PM.SD2 ---
Same Day Admit/Disch: HPI History of Present Illness Chief complaint: syncope episode Narrative: Surinder López III is a 40 year old male that presented to emergency department after a near syncope episode today. Patient has a past medical history abdominal aorta repair with hypertension and low testosterone. According to patient yesterday while at work he orients chest discomfort with upper abdominal pain. He notes later today he decided to go out to dinner while at dinner he had 2 margaritas afterwards he started to experience left shoulder pain that migrated to his jaw. When he attempted to stand up he noticed that he had head pressure with blurred vision , dizziness and felt faint. Patient notes he attempted to stand up and when he stood up he fell to the floor and caught himself. Patient notes that back in November he had a similar episode in which he fractured his nose. today patient denies any other symptoms and is adamant about discharging home. Emphasized the importance of patient following up with a ice cream freezer helper for further evaluation. WBCs 9.0 hemoglobin 12.9 hematocrit 38.2 platelets 216 D-dimer 0.19 sodium 142 potassium 3.2 BUN 18 creatinine 1.54 magnesium 2.4 liver function test within normal limits troponin 6.2 BNP 12, chest x-ray possible pneumonia CT of the head no acute infarct or or hemorrhage. EKG sinus rhythm with a heart rate of 80. Patient will discharge home today with antibiotics to treat possible pneumonia. The patient denies SOB, CP, palpitation, extremity numbness, lightheadedness, dizziness, constipation, diarrhea, chills, or fever. 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 25 pk yr. history Alcohol intake: current Alcohol use details: daily Substance use: unknown Gender identity (if verbalized by the patient): Male Spiritual care concerns: No Same Day Admit/Disch: Med Pre-admit Medications Home Medications Medication Instructions Recorded Confirmed Type amlodipine 10 mg tablet 10 mg PO DAILY #90 tablet 02/06/21 05/24/21 Rx lisinopril 20 1 tablet PO DAILY #90 tablet 04/19/21 05/24/21 Rx mg-hydrochlorothiazide 25 mg tablet doxycycline hyclate 100 mg PO DAILY 10 Days #10 tablet 05/25/21 Rx Exam Narrative: GENERAL: This is a well-nourished, well-developed patient, in no apparent distress. HEAD: normocephalic, atraumatic. EYES: PERRL. Sclera clear/white. Vision is grossly intact. EARS: External ears normal, auditory canals clear and without drainage, TMs normal without perforation. Hearing grossly intact. NOSE: External nose normal with no obvious nasal discharge, nares without redness, no rhinorrhea. THROAT: Mucous membranes moist, posterior pharynx clear. NECK: Neck supple, non-tender without lymphadenopathy, masses or thyromegaly. CARDIOVASCULAR: Regular rate and rhythm without murmurs, gallops, or rubs. RESPIRATORY: Clear to auscultation. Breath sounds equal bilaterally. No wheezes, rales, or rhonchi. GASTROINTESTINAL: Abdomen soft, non-tender, nondistended. Bowel sounds are active. No hepato-splenomegaly, or palpable masses. No guarding. SKIN: warm, intact with no suspicious lesions or rash, good texture and turgor. NEURO: awake, alert, and oriented to person, place and time. There were no ob
[2021-05-25 10:57] LABS: Ethanol < 3 mg/dL (0-6); Troponin I 5.4 ng/L (0.00-60.4)
[2021-05-25 11:05] LABS: Amphetamine Screen Urine Negative (Negative); Barbiturate Screen Urine Negative (Negative); Benzodiazepines Screen Urine Negative (Negative); Cannabinoid Screen Urine Negative (Negative); Cocaine Screen Urine Negative (Negative); Methadone Screen Urine Negative (Negative); Opiate Screen Urine Negative (Negative); Phencyclidine Screen Urine Negative (Negative)
--- NOTE | 2021-05-25 11:52 | PC.NURSE ---
Pt discharged to home with stable VS. Medications reviewed with pt and follow up orders for PCP. Pt verbalized understanding. Taken by RN via WC to family car.
--- NOTE | 2021-05-28 10:31 | PC.NURSE ---
Pt states he received and understood his discharge instructions. Pt has no other complaints.
== END 2021-05-25 11:25 | disposition home or self-care (01) ==
LOC: CHSED 23:37 → CHS2ND 05-25 10:07
PROVIDERS: Nurse Practitioner; Admitting Provider Internal Medicine Critical Care Medicine; Emergency Provider Internal Medicine Critical Care Medicine; PCP Family Medicine; Visit Provider Internal Medicine Critical Care Medicine
DX: R55 Syncope and collapse (principal); R68.84 Jaw pain; I71.4 Abdominal aortic aneurysm, without rupture; I10 Essential (primary) hypertension; R06.02 Shortness of breath; G47.33 Obstructive sleep apnea (adult) (pediatric); F17.200 Nicotine dependence, unspecified, uncomplicated
CPT/HCPCS: 36415; 70450; 71045; 80053; 80061; 80307; 82948; 83735; 83880; 84484; 85025; 85380; 85610; 85730; 87040; 93005; 96360; 96361; A9270; G0378; G0379; J7120

== ENCOUNTER 2021-06-12 16:55 | Outpatient (CLI) | payer OTHER, SELFPAY ==
[2021-06-12 18:52] LABS: SARS-CoV-2 RNA PCR Negative (Negative)
== END 2021-06-12 16:56 | disposition home or self-care (01) ==
PROVIDERS: PCP Family Medicine; Visit Provider Nurse Practitioner Family
DX: Z20.822 Contact with and (suspected) exposure to COVID-19 (principal)
CPT/HCPCS: C9803; U0003; U0005

== ENCOUNTER 2021-11-23 10:44 | Outpatient (CLI) | payer OTHER, SELFPAY ==
[2021-11-23 11:14] LABS: Anion Gap 8 mmol/L (8-16); Blood Urea Nitrogen 12 mg/dL (7-18); Carbon Dioxide 27 mmol/L (21-32); Chloride 104 mmol/L (98-108); Estimated Glomerular Filt Rate > 60; Glucose 101 mg/dL (70-99); Osmolality Calculated 287 mOsm/kg (285-295); Potassium 3.7 mmol/L (3.5-5.1); Sodium 139 mmol/L (136-145)
== END 2021-11-23 10:45 | disposition home or self-care (01) ==
LOC: CHSLAB 10:50
PROVIDERS: PCP Family Medicine
DX: I10 Essential (primary) hypertension (principal)
CPT/HCPCS: 36415; 80048

== ENCOUNTER 2022-03-07 12:49 | Outpatient (CLI) | payer OTHER, SELFPAY ==
[2022-03-07 13:05] LABS: Basophils Absolute Auto 0.06 K/mm3 (0.00-0.10); Basophils Percent Auto 0.6 % (0.0-1.0); Eosinophils Absolute Auto 0.28 K/mm3 (0.02-0.50); Eosinophils Percent Auto 2.7 % (1.0-6.0); Hematocrit 45.9 % (40.0-54.0); Hemoglobin 15.6 g/dL (14.0-18.0); Immature Granulocyte Absolute 0.06 K/mm3 (0.00-0.00); Immature Granulocyte Percent A 0.6 % (0.0-0.0); Lymphocytes Percent Auto 21.2 % (18.0-42.0); Mean Corpuscular Volume 91.1 fL (78.0-102.0); Mean Platelet Volume 9.4 fl (8.7-11.0); Monocytes Absolute Auto 0.94 K/mm3 (0.10-0.90); Monocytes Percent Auto 9.1 % (2.0-11.0); Neutrophils Absolute Auto 6.8 K/mm3 (1.7-7.2); Neutrophils Percent Auto 65.8 % (50.0-70.0); Platelet Count Result 241 K/mm3 (150-420); Red Blood Count 5.04 M/mm3 (4.70-6.10); White Blood Count 10.4 K/mm3 (4.8-10.8)
--- NOTE | 2022-03-07 13:14 | ECG_ITS ---
Measurements Intervals Tripp Rate: 89 P: 70 VA: 170 QRS: -17 QRSD: 104 T: 48 QT: 362 QTc: 441 Interpretive Statements SINUS RHYTHM NORMAL ECG COMPARED TO ECG 05/24/2021 23:42:07 NO SIGNIFICANT CHANGES Electronically Signed On 03-07-2022 21:33:53 CDT by Kwadwo Osborne D.O.
== END 2022-03-07 12:50 | disposition home or self-care (01) ==
LOC: CHSLAB 12:52
PROVIDERS: PCP Family Medicine; Visit Provider Family Medicine
DX: D72.829 Elevated white blood cell count, unspecified (principal); Z77.021 Contact with and (suspected) exposure to benzene
CPT/HCPCS: 36415; 85025; 93005

== ENCOUNTER 2022-06-21 11:25 | Outpatient (CLI) | payer OTHER, SELFPAY ==
[2022-06-21 12:06] LABS: Cholesterol 202 mg/dL (0-200); HDL Direct 52 mg/dL (40-60); LDL Cholesterol Calculated 104 mg/dL (<130); Triglycerides 230 mg/dL (0-150)
== END 2022-06-21 11:26 | disposition home or self-care (01) ==
PROVIDERS: PCP Family Medicine
DX: I72.8 Aneurysm of other specified arteries (principal)
CPT/HCPCS: 36415; 80061

== ENCOUNTER 2022-09-16 14:22 | Outpatient (CLI) | payer OTHER, SELFPAY ==
--- NOTE | ~2022-09-16 | XR_ITS ---
XR chest 2V 09/16/2022 14:38 Indication: Upper respiratory disease. Procedure: 2 view chest Comparison: 05/25/2021 Findings: Calcified granuloma left lower lobe. Heart size normal. The lungs are hyperinflated which i s consistent with, but not diagnostic of chronic obstructive pulmonary disease. No focal air space di sease, pulmonary edema, pleural effusion or suspected pneumothorax. Impression: 1: No acute cardiopulmonary disease. Reviewed, dictated and finalized at location A. Impression: 1: No acute cardiopulmonary disease.
== END 2022-09-16 14:23 | disposition home or self-care (01) ==
LOC: CHSIMG 14:25
PROVIDERS: PCP Family Medicine; Visit Provider Family Medicine
DX: G47.33 Obstructive sleep apnea (adult) (pediatric) (principal); Z99.89 Dependence on other enabling machines and devices
CPT/HCPCS: 71046

== ENCOUNTER 2023-01-30 14:42 | Outpatient (CLI) | payer OTHER, SELFPAY ==
--- NOTE | ~2023-01-30 | XR_ITS ---
EXAM: XR lumbar spine 2-3V DATE: 01/30/2023 14:57 HISTORY: M51.06 - Intervertebral disc disorders with myelopathy, l... . COMPARISON: 06/28/2011; CT abdomen pelvis 11/11/2020. FINDINGS: Embolization coils over the midline abdomen. Mild lumbar scoliosis. 5 nonrib-bearing lumbar -type vertebral bodies. Pedicles intact. Normal vertebral body alignment. Vertebral body heights pres erved. Multilevel moderate disc space narrowing and marginal osteophytosis. Vacuum phenomenon at L5-S 1. Mild and moderate multilevel facet hypertrophy and sclerosis. No fracture or dislocation. Aortic a therosclerotic calcification without evident aneurysm. IMPRESSION: Multilevel lumbar degenerative disc disease, severe at L5-S1. Multilevel mild and moderate lumbar facet arthropathy. Reviewed, dictated and finalized at location K.
== END 2023-01-30 14:43 | disposition home or self-care (01) ==
LOC: CHSIMG 14:44
PROVIDERS: PCP Nurse Practitioner Family; Visit Provider Nurse Practitioner Family
DX: M51.06 Intervertebral disc disorders with myelopathy, lumbar region (principal); M51.37 Other intervertebral disc degeneration, lumbosacral region; M12.88 Other specific arthropathies, not elsewhere classified, other specified site
CPT/HCPCS: 72100

== ENCOUNTER 2023-02-09 15:57 | Outpatient (RCR) | payer OTHER, SELFPAY ==
--- NOTE | 2023-02-09 17:38 | PTOPEVAL1 ---
Assessment and note entered by Silvestre Murillo Evaluation Information Assessment Status Evaluation Diagnosis intervertebral disc disorders with myleopathy, lumbar region Onset 02/03/23 Subjective Information Pt. reports that he has a hx back pain. He states that he has had on/off back pain for 10-15 years. 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 Pain is described across the low back and into the l.e. He states that he notices increased pain with long periods of sitting or sitting in one position. He reports that pain is relieved with walking. He reports that pain does not disrupt his sleep. Pt . reports that he continues to work and states that he does not do any lifting. He reports that he is a surgical candidate would like to try PT before surgery. Reported Pain Level Pain Score 5: Self Report Assessment PT Clinical Summary Pt. is a 42 year old male who enters the clinic with hx of chronic low back pain. He presents with impaired trunk mobility, impaired flexibility , impaired postural awareness and functional decline. Continued skilled PT is indicated in order to improve these areas to allow the pt. to be able to complete all IADL's with improved comfort and efficiency. Plan of Care Interventions Electrical Stimulation,Gait Training,Hot Pack/Cold Pack,Manual Therapy,Mechanical Traction,Neuro Re- education,Therapeutic Activities,Therapeutic Exercise PT Services Indicated Yes Treatment Frequency and 2x/week x 6 visits Duration These treatments will address the objective and functional deficits as defined above. The patient will be advanced safely and appropriately in order for the patient to progress towards his/her prior level of function. Additional exercises will be introduced and as well as a comprehensive home exercise program upon discharge, if needed, ?to ensure carryover of functional gains achieved in the clinic. This treatment plan has been reviewed and agreement upon by the patient.
--- NOTE | 2023-03-05 21:19 | OPREHPOC ---
Outpatient Therapy Plan of Care This is a Multidisciplinary Plan of Care that may contain components documented by all disciplines (PT, OT, and ST.) PT Problem 1 PT Problem #1 Knowledge Deficit PT Goal 1 Goal Pt. will be independent with a HEP addressing flexibility and core stability. Target Visit 2 Progress Met PT Problem 2 PT Problem #2 Pain PT Goal 1 Goal Pt. will report 25-50% reduction in pain levels with prolonged standing Target Visit 6 Progress Not Met PT Problem 3 PT Problem #3 Impaired Functional Mobil PT Goal 1 Goal Pt. will be able to safely lift 20# object from floor to waist x 10 reps. Progress Not Met
--- NOTE | 2023-03-05 21:19 | PTOPDC ---
Assessment and note entered by JT File, PT Evaluation Information Assessment Status Discharge Diagnosis intervertebral disc disorders with myleopathy, lumbar region Onset 02/03/23 Subjective Information patient reports he continues to have pain across the lower back and into the LE's. he reports he has not noticed any improvement in skilled PT. he reports he continues to have increased pain with standing, lifting, walking. Assessment PT Clinical Summary mr. gonzalez has attended 6 skilled PT visits thus far. he continues to report pain in the lower back this is unchanged/unresolved since starting PT. he has met goal only for HEP performance. it is in the patients best interest to DC skilled PT today , and return to MD for next steps regarding his lumbar and LE symptoms. Plan of Care PT Services Indicated Yes
== END 2023-02-26 16:20 | disposition home or self-care (01) ==
LOC: CHSPT 15:57
PROVIDERS: PCP Family Medicine; Visit Provider Nurse Practitioner Family
DX: M51.06 Intervertebral disc disorders with myelopathy, lumbar region (principal)
CPT/HCPCS: 97012; 97014; 97110; 97161; G0283

== ENCOUNTER 2023-03-07 09:55 | Outpatient (CLI) | payer OTHER, SELFPAY ==
--- NOTE | ~2023-03-07 | MR_ITS ---
MRI of the lumbar spine Clinical History: Intervertebral disc disorder Technique: Axial T2-weighted images, and sagittal T1-weighted, T2-weighted, and T2 fat-sat images wer e acquired. COMPARISON: 05/14/2013 Findings: There is no fracture or subluxation of the lumbar spine. Vertebral bodies maintain normal h eight and alignment. No suspicious bone marrow signal abnormality seen. At L1-L2, there is no significant disc bulge or herniation. There is mild facet joint arthropathy. No central canal stenosis or neural foraminal narrowing. At L2-L3, there is no disc bulge or herniation. There is mild to moderate facet arthropathy. No centr al canal stenosis or neural foraminal narrowing. L3-L4, there is disc bulge and moderate facet arthropathy. There is mild central canal stenosis. Ther e is severe right neural foraminal narrowing. Left neural foramen preserved. At L4-L5, there is no disc bulge or herniation. There is mild facet arthropathy. No central canal scott nosis or neural foraminal narrowing. At L5-S1, there is moderate degenerative disc narrowing. There is disc bulge and mild facet arthropat hy, with left lateral recess stenosis. No florentin central canal stenosis. Impression: Severe right neural foraminal narrowing at L3-L4. Left lateral recess stenosis with disc bulge at L5-S1. Additional mild degenerative changes, as above. Reviewed, dictated and finalized at [facility]. Impression: Severe right neural foraminal narrowing at L3-L4. Left lateral recess stenosis with disc bulge at L5-S1. Additional mild degenerative changes, as above.
== END 2023-03-07 09:56 | disposition home or self-care (01) ==
LOC: CHSIMG 09:56
PROVIDERS: PCP Family Medicine; Visit Provider Family Medicine
DX: M51.06 Intervertebral disc disorders with myelopathy, lumbar region (principal); M48.061 Spinal stenosis, lumbar region without neurogenic claudication; M51.37 Other intervertebral disc degeneration, lumbosacral region
CPT/HCPCS: 72148

== ENCOUNTER 2024-05-17 10:06 | Outpatient (CLI) | payer OTHER, SELFPAY ==
[2024-05-17 10:37] LABS: Basophils Absolute Auto 0.08 K/mm3 (0.00-0.10); Basophils Percent Auto 0.7 % (0.0-1.0); Eosinophils Absolute Auto 0.47 K/mm3 (0.02-0.50); Eosinophils Percent Auto 3.8 % (1.0-6.0); Hematocrit 45.5 % (40.0-54.0); Hemoglobin 16.4 g/dL (14.0-18.0); Immature Granulocyte Absolute 0.07 K/mm3 (0.00-0.00); Immature Granulocyte Percent A 0.6 % (0.0-0.0); Lymphocytes Absolute Auto 2.12 K/mm3 (1.10-4.50); Lymphocytes Percent Auto 17.3 % (18.0-42.0); Mean Corpuscular Volume 88.9 fL (78.0-102.0); Mean Platelet Volume 9.1 fl (8.7-11.0); Monocytes Absolute Auto 1.06 K/mm3 (0.10-0.90); Monocytes Percent Auto 8.6 % (2.0-11.0); Neutrophils Absolute Auto 8.47 K/mm3 (1.70-7.20); Platelet Count Result 265 K/mm3 (150-420); Red Blood Count 5.12 M/mm3 (4.70-6.10); Red Cell Distribution Width 12.6 % (11.6-14.4); White Blood Count 12.3 K/mm3 (4.8-10.8)
[2024-05-17 11:20] LABS: Alanine Aminotransferase 48 U/L (16-63); Albumin Level 3.8 g/dL (3.4-5.0); Alkaline Phosphatase 83 U/L (46-116); Anion Gap 9 mmol/L (4-12); Aspartate Amino Transferase 27 U/L (15-37); Bilirubin,Total 0.7 mg/dL (0.00-1.00); Blood Urea Nitrogen 9 mg/dL (7-18); Carbon Dioxide 27 mmol/L (21-32); Chloride 102 mmol/L (98-108); Cholesterol 205 mg/dL (0-200); Estimated Glomerular Filt Rate > 60; Glucose 106 mg/dL (70-99); HDL Direct 50 mg/dL (40-60); LDL Cholesterol Calculated 118 mg/dL (<130); Osmolality Calculated 284 mOsm/kg (285-295); Potassium 3.6 mmol/L (3.5-5.1); Sodium 138 mmol/L (136-145); Total Protein 7.4 g/dL (6.4-8.2); Triglycerides 186 mg/dL (0-150)
[2024-05-17 11:29] LABS: Thyroid Stimulating Hormone Reflex 0.95 u/IU/mL (0.36-3.74)
[2024-05-17 11:35] LABS: Hemoglobin A1C 5.1 % (<5.7)
== END 2024-05-17 10:07 | disposition home or self-care (01) ==
LOC: CHSLAB 10:08
PROVIDERS: PCP Nurse Practitioner Family; Visit Provider Nurse Practitioner Family
DX: Z00.00 Encounter for general adult medical examination without abnormal findings (principal); Z80.42 Family history of malignant neoplasm of prostate
CPT/HCPCS: 36415; 80053; 80061; 83036; 84153; 84443; 85025; G0103

== ENCOUNTER 2024-08-04 15:00 | Outpatient (CLI) | payer OTHER, SELFPAY ==
--- NOTE | ~2024-08-04 | XR_ITS ---
CHEST RADIOGRAPH, PA AND LATERAL CLINICAL HISTORY: J06.9 - Acute upper respiratory infection, unspecified . COMPARISON: 09/16/2022 TECHNIQUE: PA and lateral views of the chest. FINDINGS The cardiomediastinal silhouette is unremarkable. Calcified granuloma within the left mid to lower lung field. The remainder of the lungs are clear. Visualized osseous structures and soft tissues are unremarkable. IMPRESSION: No focal infiltrate or effusion. Reviewed, dictated and finalized at location A. SAMPLER
--- OUTSIDE RECORDS SUMMARY | 2024-08-04 15:04 | XMS_ITS | Encounter Summary ---
Author Organization [facility] Address [address] [place] [address] Care Team Providers Care Wafer Slicer Name Role Phone Santy Swift MD Unavailable Unavailable Earnest Joshi DO Primary Care Provider [phone] Marko Manuel MD Unavailable [phone] Encounter Details Date Type Department Care Team (Late st Contact Info) Description 10/24/2022 [employer] Message Immunetics [facility] [address] [place] [id number] [facility] Provider PS-Lipid results Social History Tobacco Use Types Packs/Day Years Used Date Smoking Tobacco: Former Cigarettes 1 25 0 12/12/1995 - 12/11/2020 Alcohol Use Standard Drinks/Week Comments Yes 16.7 (1 standard drink = 0.6 oz pure alcohol) Sex and Gender Information Value Date Recorded Sex Assigned at Not on file Legal Sex Male 1:26 AM CDT Gender Identity Male 06/04/2021 7:43 AM HOT METAL CHARGER Sexual Orientation Straight 06/04/2021 7: 43 AM HOT METAL CHARGER COVID-19 Exposure Response Date Recorded In the last 10 days, have yo u been in contact with someone who was confirmed or suspected to have Coronavirus/COVID-19? No / Unsure 10/15/2022 6:57 AM CDT documented as of this encounter Functional Status * RETIRED Are you deaf or do you have serious difficulty hearing Answer Date of Assessment Author Status No 11/01/2020 5:42 AM CDT Activ e * RETIRED Are you blind or do you have serious difficulty seeing, even when wearing glasses? Answer Date of Assessment Author Status No 11/01/2020 5:42 AM CDT Activ e * Do you have serious difficulty walking or climbing stairs? Answer Date of Assessment Author Status No 11/01/2020 5:42 AM CDT Angie Hudson R N Active * Do you have difficulty dressing or bathing? Answer Date of Assessment Author Status No 11/01/2020 5:42 AM CDT Angie Hudson R N Active * Because of a physical, mental, or emotional condition, do you have difficulty doing errands alone such as visiting a doctor's office or shopping? Answer Date of Assessment Author Status No 11/01/2020 5:42 AM CDT Angie Hudson R N Active documented as of this encounter Mental Status * Because of a physical, mental, or emotional condition, do you have serious difficulty concentrating, remembering, or making decisions? Answer Entry Date Author Status No 11/01/2020 5:42 AM CDT Angie Hudson R N Active documented in this encounter Plan of Treatment Not on file documented as of this encounter Goals Goal Patient Goal Type Associated Problems Recent Progress Patient-Stated? Author Safety Patient/family will have appropriate support at home upon discharge General No Sidra Garza RN documented as of this encounter Visit Diagnoses Not on filedocumented in this encounter Care Teams Wafer Slicer Relationship Specialty Start Date End Date Earnest Joshi DO [address] [place] [address] PCP - General FAMILY PRACTICE 01/30/21 Santy Swift MD SURGERY 11/10/20 Marko Manuel MD [address] [facility] [address] [place] [address] [employer] Specialist INTERVENTIONAL CARDIOLOGY 05/31/21 documented as of this encounter
--- OUTSIDE RECORDS SUMMARY | 2024-08-04 15:04 | XMS_ITS | Patient Health Summary ---
Author Organization [facility] Address [address] [facility] [place] [address] Care Team Providers Care Mental Health Specialist Name Role Phone Phil Elliott MD Primary Care Provider [phone] Note from [facility],non-owned Affiliates and Associated Physician Practices is amultiple site organization consisting of ambulatory clinics and hospital sitesin [place], [place], [place] and [place]. This disclosure is being madepursuant to the Care Everywhere program and may not contain all information available regarding this patient. Last updated 18.[facility] Allergies No known active allergies Medications * Be aware that medications may not be up to date on this document. Alwaysverify current medications with the patient. * fluticasone propionate (FLONASE) 50 MCG/ACT nasal spray(Started 06/26/2020) [place] 2 sprays into each nostril once daily * LOSARTAN POTASSIUM PO * anastrozole (ARIMIDEX) 1 MG tablet Take 1 mg by mouth once daily * Multiple Vitamin (MULTI-VITAMIN DAILY PO) * Glucosamine-Chondroitin (GLUCOSAMINE CHONDR COMPLEX PO) Active Problems Problem Noted Date Diagnosed Date Pain of left forearm 07/10/2020 Immunizations * INFLUENZA VACCINE(Given 03/24/2020) Social History Tobacco Use Types Packs/Day Years Used Date Smoking Tobacco: Every Day Smokeless Tobacco: Never Sex and Gender Information Value Date Recorded Sex Assigned at Not on file Gender Identity Not on file Sexual Orientation Not on file Last Filed Vital Signs Vital Sign Reading Time Taken Comments Blood Pressure - - Pulse - - Temperature - - Respiratory Rate - - Oxygen Saturation - - Inhaled Oxygen Concentration - - Weight 108.9 kg (240 lb) 07/10/2020 10:38 AM PROJECT SURVEYOR Height 180.3 cm (5' 11 ) 07/10/2020 10:38 AM PROJECT SURVEYOR Body Mass Index 33.47 07/10/2020 10:38 AM PROJECT SURVEYOR Procedures * XR FOREARM LEFT 2VW OR MORE(Performed 07/10/2020) Performed for Pain Results * XR FOREARM LEFT 2VW (07/10/2020 10:28 AM PROJECT SURVEYOR) Anatomical Region Laterality Modality Upper Extremity Radiographic Lety ging 07/10/2020 10:3 4 AM PROJECT SURVEYOR Impressions 07/10/2020 10:47 AM PROJECT SURVEYOR Unremarkable study. Edited by Soheila Damian on 07/10/2020 10:38 AM *Reading Radiologist: Ori Bonner on 07/10/2020 at 10:47 AM Narrative 07/10/2020 10:47 AM PROJECT SURVEYOR LEFT FOREARM HISTORY: Forearm pain. Views of the forearm demonstrate no fracture or dislocation. No periosteal reaction is seen. Procedure Note Ori Bonner MD - 07/10/2020 LEFT FOREARM HISTORY: Forearm pain. Views of the forearm demonstrate no fracture or dislocation. No periosteal reaction is seen. IMPRESSION Unremarkable study. Edited by Soheila Damian on 07/10/2020 10:38 AM *Reading Radiologist: Ori Bonner on 07/10/2020 at 10:47 AM Willard Estrada MD DIAGNOSTIC IMAGING O RDERABLES Care Teams Mental Health Specialist Relationship Specialty Start Date End Date Phil Elliott MD [address] [place] [phone] PCP - General 07/09/20
--- OUTSIDE RECORDS SUMMARY | 2024-08-04 15:04 | XMS_ITS | Encounter Summary ---
Author Organization [facility] Address [address] [place] [address] Care Team Providers Care Financial Solutions Advisor Name Role Phone Santy Swift MD Unavailable Unavailable Earnest Joshi DO Primary Care Provider [phone] Marko Manuel MD Unavailable [phone] Encounter Details Date Type Department Care Team (Late st Contact Info) Description 10/24/2022 [employer] Message [facility] [address] [place] [address] [facility] Provider CT Results Social History Tobacco Use Types Packs/Day Years Used Date Smoking Tobacco: Former Cigarettes 1 25 0 12/12/1995 - 12/11/2020 Alcohol Use Standard Drinks/Week Comments Yes 16.7 (1 standard drink = 0.6 oz pure alcohol) Sex and Gender Information Value Date Recorded Sex Assigned at Not on file Legal Sex Male 1:26 AM CDT Gender Identity Male 06/04/2021 7:43 AM VICE ADMIRAL Sexual Orientation Straight 06/04/2021 7: 43 AM VICE ADMIRAL COVID-19 Exposure Response Date Recorded In the [...] on filedocumented in this encounter Care Teams Financial Solutions Advisor Relationship Specialty Start Date End Date Earnest Joshi DO [address] [place] [address] PCP - General FAMILY PRACTICE 01/30/21 Santy Swift MD SURGERY 11/10/20 Marko Manuel MD [address] [facility] [address] [place] [address] [place] [employer] Unloader INTERVENTIONAL CARDIOLOGY 05/31/21 documented as of this encounter
--- OUTSIDE RECORDS SUMMARY | 2024-08-04 15:04 | XMS_ITS | Referral Summary ---
Author Organization [facility] Address [address] [place] [address] Care Team Providers Care Headliner Installer Name Role Phone Phil Elliott MD Primary Care Provider [phone] Source Comments [facility],non-owned Affiliates and Associated Physician Practices is amultiple site organization consisting of ambulatory clinics and hospital sitesin [place], [place], [place] and [place]. This disclosure is being madepursuant to the Care Everywhere program and may not contain all information available regarding this patient. Last updated 18.[facility] Allergies No known active allergies Medications * Be aware that medications may not be up to date on this document. Alwaysverify current medications with the patient. Medication Sig Dispensed Refills Start Date End Date Status fluticasone propionate (FLONASE) 50 MCG/ACT nasal spray [place] 2 sprays into each nostril once daily 06/26/2020 Active LOSARTAN POTASSIUM PO Act silver anastrozole (ARIMIDEX) 1 MG tablet Take 1 mg by mouth once daily Active Multiple Vitamin (MULTI-VITAMIN DAILY PO) Active Glucosamine-Chondroiti n (GLUCOSAMINE CHONDR COMPLEX PO) Active Active Problems Problem Noted Date Diagnosed Date Pain of left forearm 07/10/2020 Immunizations Name Administration Dates Next Due INFLUENZA VACCINE 03/24/2020 Social History Tobacco Use Types Packs/Day Years [...] 108.9 kg (240 lb) 07/10/2020 10:38 AM OUTSOLE SCHEDULER Height 180.3 cm (5' 11 ) 07/10/2020 10:38 AM OUTSOLE SCHEDULER Body Mass Index 33.47 07/10/2020 10:38 AM OUTSOLE SCHEDULER Plan of Treatment Not on file Care Teams Headliner Installer Relationship Specialty Start Date End Date Phil Elliott MD [address] [place] [phone] PCP - General 07/09/20
--- OUTSIDE RECORDS SUMMARY | 2024-08-04 15:04 | XMS_ITS | Continuity of Care Document ---
Author Organization [facility] Address [address] [place] [address] [address] [place] [address] Phone Care Team Providers Care Paragliding Instructor Name Role Phone Contreras OD, Dontrell Unavailable Unavailable Procedures Procedure Date Office/outpatient Visit, Est Eye Exam, New Patient Remove Foreign Body From Eye Advance Directives Directive Yes / No Effective Date File Name No Information Encounters Encounter Description Practice Location Reason(s) For Visit Diagnoses Date Provider Providers Copied on Encounter Office/outpat ient Visit, Est [facility], [address], [place], [place], [id number], [place] tel:[phone] [facility] No Information Oct-1 3-200 7 Contreras OD Dontrell. [address], [place], [address], [place]. tel:[phone] [facility], [address] [place] [address] [address], [place], [place], [id number], [place] tel:[phone] [facility] No Information Oct-1 0-200 7 Doisy Edward. [address], [place], [address], [place]. tel:[phone] Family History Family Member Type Diagnosis Age At Onset No Information Payers Payer name Insurance type Covered green party ID Authoriza mariana(s) [employer] [place] CI [id number] Social History Type Description Quantity Date Captured Comments Sex Male Smoking Status No Information Chief Complaint And Reason For Visit No Information Reason For Referral Reason For Referral No Information History Of Present Illness Encounter Date Complaint History Of Prese nt Illness No Information Functional Status Date Functional Assessmen t No Information Instructions Date Instruction Additional Infor mation No Information Assessments Type Assessment Date No Information Patient Care Teams Name Effective Dates (start - stop) Status Members No Information
--- OUTSIDE RECORDS SUMMARY | 2024-08-04 15:04 | XMS_ITS | Clinical Summary ---
Author Organization [facility] Address [address] [place] [address] Care Team Providers Care Expediter Service Order Name Role Phone Santy Swift MD Unavailable Unavailable Earnest Joshi DO Primary Care Provider [phone] Marko Manuel MD Unavailable [phone] Allergies Active Allergy Reactions Criticality Noted Date Comments Atorvastatin Myalgias High 09/29/2022 Simvastatin Myalgias 10/05/2023 Medications amLODIPine 10 MG tablet Take 1 tablet (10 mg total) by mouth daily. Active multi vitamin/minerals (THERA-M ENHANCED) tablet Take 1 tablet by mouth daily. Active Turmeric (QC TUMERIC COMPLEX) 500 MG Cap Active hydroCHLOROthiaz elyssa (HYDRODIURIL) 25 MG tablet TAKE HALF A TABLET BY MOUTH FOR 3 DAYS ONE TABLET BY MOUTH DAILY 90 tablet 2 08/17/2023 Active lisinopril (PRINIVIL) 30 MG tablet Take 1 tablet (30 mg total) by mouth daily. Active albuterol sulfate HFA 108 (90 Base) MCG/ACT inhaler Acti ve fluticasone propionate (FLONASE) 50 MCG/ACT nasal spray Active OZEMPIC, 0.25 OR 0.5 MG/DOSE, 2 MG/3ML injection (PEN) 08/16/2023 Active sildenafil (VIAGRA) 25 MG tablet Active Active Problems Problem Noted Date Diagnosed Date Superior mesenteric artery aneurysm 10/29/2020 Hypertension History of repair of aneurysm of abdominal aorta MEKA on CPAP Family History Medical History Relation Comments Heart Attack Father Open Heart Father Stent Cardiac Father Heart Attack Maternal Grandfather Open Heart Maternal Grandfather Stroke Maternal Grandfather Heart Attack Paternal Grandfather Open Heart Paternal Grandfather Stroke Paternal Grandfather Relation Status Comments Father Maternal Grandfather Maternal Grandmother Paternal Grandfather Social History Tobacco Use Types Packs/Day Years Used Date Smoking Tobacco: Former Cigarettes 1 25 0 12/12/1995 - 12/11/2020 Alcohol Use Standard Drinks/Week Comments Yes 16.7 (1 standard drink = 0.6 oz pure alcohol) Sex and Gender Information Value Date Recorded Sex Assigned at Not on file Legal Sex Male 1:26 AM CDT Gender Identity Male 06/04/2021 7:43 AM CREW LEADER/CONTROL ROOM OPERATOR Sexual Orientation Straight 06/04/2021 7: 43 AM CREW LEADER/CONTROL ROOM OPERATOR Last Filed Vital Signs Vital Sign Reading Time Taken Comments Blood Pressure 130/70 10/05/2023 1:17 PM CDT Pulse 98 10/05/2023 1:17 PM CDT Temperature 36.7 C (98.1 F) 11/01/2020 9:20 PM CDT Respiratory Rate 18 10/05/2023 1:17 PM CDT Oxygen Saturation 96% 10/05/2023 1:17 PM CDT Inhaled Oxygen Concentration - - Weight 115.3 kg (254 lb 3.2 oz) 10/05/2023 1:17 PM CDT Height 182.9 cm (6') 10/05/2023 1:17 PM CDT Body Mass Index 34.48 10/05/2023 1:17 PM CDT Plan of Treatment Health Maintenance Due Date Last Done Comments Annual Physical 11/30/1982 DTaP, Tdap and Td Vaccines (6 - Tdap) 12/27/1994 12/26/1994, 03/02/1985, 06/06/1981, Additional history exists Hepatitis B Vaccines (1 of 3 - 19+ 3-dose series) 11/30/1998 COVID-19 Vaccine ( season) 2024 10/13/2020, 09/15/2020 Influenza Adult (#1) 2024 03/24/2020, 05/24/2018, 04/30/2017 Pneumococcal Vaccine: Pediatrics (0 to 5 Years) and At-Risk Patients (6 to 64 Years) Aged Out 06/11/2017 No longer eligible based on patient's age to complete this topic Hepatitis C Completed 10/15/2022 HPV Vaccines Aged Out No longer eligi ble based on patient's age to complete this topic Meningococcal B Vaccine Aged Out No l onger eligible based on patient's age to complete this topic Meningococcal Vaccine Aged Out No levon ana eligible based on patient's age to complete this topic RSV Immunizations Under 20 Months Aged Out No longer eligible based on patient's age to complete this topic Goals Goal Patient Goal Type Associated Problems Recent Progress Patient-Stated? Author Safety Patient/family will have appropriate support at home upon discharge General No Sidra Garza, scorer helper Procedure Name Priority Date/Time Associated Diagnosis Comments HEPATITIS PANEL,ACUTE Routine 10/15/2022 7:15 AM CDT Superior mesenteric artery aneurysm from Last 3 Months or Most Recently Relevant to Health Maintenance Results * HEPATITIS PANEL,ACUTE (10/15/2022 7:15 AM CDT) HEPATITIS B SURFACE AG NON-REACT KONG NON-REACT KONG 10/15/2022 2:14 PM CDT [facility] Comment:HBsAg NOT DETECTED. HEP B CORE IGM NON-REACT KONG NON-REACT KONG 10/15/2022 2:14 PM CDT [facility] Comment: IgM ANTI HBc NOT DETECTED. DOES NOT EXCLUDE THE POSSIBILITY OF EXPOSURE TO OR INFECTION WITH HBV. NO RETEST REQUIRED. HIGH DOSES OF BIOTIN MAY INTERFERE WITH THIS TEST RESULT. CORRELATION TO CLINICAL HISTORY AND PRESENTATION RECOMMENDED. HAV IGM NON-REACT KONG NON-REACT KONG 10/15/2022 2:14 PM CDT [facility] Comment: IgM ANTI HAV NOT DETECTED. DOES NOT EXCLUDE THE POSSIBILITY OF EXPOSURE TO OR INFECTION WITH HAV. LEVELS OF IgM ANTI HAV MAY BE BELOW THE CUTOFF IN EARLY INFECTION. HEPATITIS C AB NON-REACT KONG NON-REACT KONG 10/15/2022 2:14 PM CDT [facility] Comment: ANTIBODIES TO HCV NOT DETECTED. DOES NOT EXCLUDE THE POSSIBILITY OF EXPOSURE TO HCV. 10/15/2022 7:15 AM CDT Marko Manuel MD LABORATORY Final Result [facility] [address] [place] [address], [id number] from Last 3 Months or Most Recently Relevant to Health Maintenance Insurance [employer] Advance Directives * Full Code (Latest Code Status on File) Date Activated Date Inactivated Comments 10/29/2020 11:33 PM 11/02/2020 2:16 PM Care Teams Expediter Service Order Relationship Specialty Start Date End Date Earnest Joshi DO [address] [place] [address] PCP - General FAMILY PRACTICE 01/30/21 Santy Swift MD SURGERY 11/10/20 Marko Manuel MD [address] [facility] [address] [place] [address] [place] Tobacco Educator INTERVENTIONAL CARDIOLOGY 05/31/21
--- OUTSIDE RECORDS SUMMARY | 2024-08-04 15:04 | XMS_ITS | Clinical Summary ---
Author Organization [facility] Address [address] [place] [address] Care Team Providers Care Radio Interference Expert Name Role Phone Phil Elliott MD Primary Care Provider [phone] Source Comments [facility],non-owned Affiliates and Associated Physician Practices is amultiple site organization consisting of ambulatory clinics and hospital sitesin [place], [place], [place] and [place]. This disclosure is being madepursuant to the Care Everywhere program and may not contain all information available regarding this patient. Last updated 18.[facility] Allergies No known active allergies Medications * Be aware that medications may not be up to date on this document. Alwaysverify current medications with the patient. Medication Sig Dispensed Refills Start Date End Date Status fluticasone propionate (FLONASE) 50 MCG/ACT nasal spray Thompson 2 sprays into each nostril once daily [...] 108.9 kg (240 lb) 07/10/2020 10:38 AM TRANSPORTATION SUPERVISOR Height 180.3 cm (5' 11 ) 07/10/2020 10:38 AM TRANSPORTATION SUPERVISOR Body Mass Index 33.47 07/10/2020 10:38 AM TRANSPORTATION SUPERVISOR Plan of Treatment Health Maintenance Due Date Last Done Comments LIPID TESTING 1979 HIV SCREENING 11/30/1994 HEPATITIS C SCREENING 11/26/1997 DTAP/TDAP/TD VACCINES (1 - Tdap) 11/30/1998 HEPATITIS B VACCINE (1 of 3 - 19+ 3-dose series) 11/30/1998 PNEUMOCOCCAL VACCINE (1 of 2 - PCV) 11/30/1998 SCREENING FOR DIABETES 07/10/2020 COVID-19 VACCINE ( - 2023-2 5 season) 2024 INFLUENZA VACCINE (#1) 2024 03/24/2020 DEPRESSION SCREENING 06/22/2024 ZOSTER VACCINE (1 of 2) 11/30/2029 HIB VACCINE Aged Out No longer eligi ble based on patient's age to complete this topic HPV VACCINE Aged Out No longer eligi ble based on patient's age to complete this topic MENINGOCOCCAL (Group B) VACCINE Aged Out No longer eligible based on patient's age to complete this topic MENINGOCOCCAL VACCINE Aged Out No levon ana eligible based on patient's age to complete this topic Care Teams Radio Interference Expert Relationship Specialty Start Date End Date Phil Elliott MD [address] [place] [address] PCP - General 07/09/20
[2024-08-04 15:48] LABS: Strep Group A RT-PCR NOT DETECTED (Negative)
[2024-08-04 15:59] LABS: SARS-CoV-2 RNA PCR Negative (Negative)
[2024-08-04 16:00] LABS: Influenza A QL RT-PCR Positive (Negative); Influenza B QL RT-PCR Negative (Negative); RSV RNA, RT-PCR Negative (Negative)
== END 2024-08-04 15:01 | disposition home or self-care (01) ==
PROVIDERS: PCP Nurse Practitioner Family; Visit Provider Nurse Practitioner Family
DX: R50.9 Fever, unspecified (principal); J02.9 Acute pharyngitis, unspecified; J06.9 Acute upper respiratory infection, unspecified
CPT/HCPCS: 71046; 87637; 87651

== ENCOUNTER 2025-05-16 17:33 | Outpatient (CLI) | payer OTHER, SELFPAY ==
--- OUTSIDE RECORDS SUMMARY | 2025-05-16 17:35 | XMS_ITS | Encounter Summary ---
Author Organization [facility] Address [address] [place] [address] Care Team Providers Care Php Wordpress Developer Name Role Phone Santy Swift MD Unavailable Unavailable Earnest Joshi DO Primary Care Provider [phone] Marko Manuel MD Unavailable [phone] Encounter Details Date Type Department Care Team (Late st Contact Info) Description 10/24/2022 Health-Connected Message adFreeq [facility] [address] [place] [phone] [facility] Provider PS-Lipid results Social History Tobacco Use Types Packs/Day Years Used Date Smoking Tobacco: Former Cigarettes 1 25 0 12/12/1995 - 12/11/2020 Alcohol Use Standard Drinks/Week Comments Yes 16.7 (1 standard drink = 0.6 oz pure alcohol) Sex and Gender Information Value Date Recorded Sex Assigned at Not on file Legal Sex Male 1:26 AM CDT Gender Identity Male 06/04/2021 7:43 AM SPEECH CORRECTION CONSULTANT Sexual Orientation Straight 06/04/2021 7: 43 AM SPEECH CORRECTION CONSULTANT COVID-19 Exposure Response Date Recorded In the [...] documented in this encounter Plan of Treatment Upcoming Encounters Date Type Department Care Team (Late st Contact Info) Description 10/05/2025 1:30 PM CDT [facility] [address] [place] [phone] Marko Manuel MD [address] [facility] [address] [place] [address] documented as of this encounter Goals Goal Patient Goal Type Associated Problems Recent Progress Patient-Stated? Author Safety Patient/family will have appropriate support at home upon discharge General No Sidra Garza RN documented as of this encounter Visit Diagnoses Not on filedocumented in this encounter Care Teams Php Wordpress Developer Relationship Specialty Start Date End Date Earnest Joshi DO [address] [place] [address] PCP - General FAMILY PRACTICE 01/30/21 Santy Swift MD SURGERY 11/10/20 Marko Manuel MD [address] [facility] [address] [place] [address] [place] Assembler Chassis INTERVENTIONAL CARDIOLOGY 05/31/21 documented as of this encounter
--- OUTSIDE RECORDS SUMMARY | 2025-05-16 17:35 | XMS_ITS | Clinical Summary ---
Author Organization [facility] Address [address] [place] [address] Care Team Providers Care Cosmetic Assembler Name Role Phone Santy Swift MD Unavailable Unavailable Earnest Joshi DO Primary Care Provider [phone] Marko Manuel MD Unavailable [phone] Allergies Active Allergy Reactions Criticality Noted Date [...] CDT Gender Identity Male 06/04/2021 7:43 AM ENGINEERING TECHNICAL ANALYST Sexual Orientation Straight 06/04/2021 7: 43 AM ENGINEERING TECHNICAL ANALYST Last Filed Vital Signs Vital Sign Reading [...] 10/05/2023 1:17 PM CDT Plan of Treatment Upcoming Encounters Date Type Department Care Team ([facility] Contact Info) Description 10/05/2025 1:30 PM CDT Office Visit [facility] [address] [place] [address] Marko Manuel MD [address] [facility] [address] [place] [address] Health Maintenance Due Date Last Done Comments Colorectal Cancer Screening Colonoscopy (10 Years) 1979 Annual Physical 11/30/1982 DTaP, Tdap and Td Vaccines (6 - Tdap) 12/27/1994 12/26/1994, 03/02/1985, 06/06/1981, Additional history exists Hepatitis B Vaccines (1 of 3 - 19+ 3-dose series) 11/30/1998 HPV Vaccines (1 - 3-dose SCDM series) 11/30/2006 COVID-19 Vaccine ( - 2024- season) 2025 10/13/2020, 09/15/2020 Influenza Adult (#1) 2025 03/24/2020, 05/24/2018, 04/30/2017 Pneumococcal Vaccine: Pediatrics (0 to 5 Years) and At-Risk Patients (6 to 49 Years) Aged Out 06/11/2017 No longer eligible based on patient's age to complete this topic Hepatitis C Completed 10/15/2022 Hepatitis A Vaccines Aged Out No long er eligible based on patient's age to complete [...] home upon discharge General No Sidra Garza builder beam Procedure Name Priority Date/Time Associated Diagnosis Comments HEPATITIS PANEL,ACUTE Routine 10/15/2022 7:15 AM CDT Superior mesenteric artery aneurysm from Last 3 Months or Most Recently Relevant to Health Maintenance Results * HEPATITIS PANEL,ACUTE (10/15/2022 7:15 AM CDT) HEPATITIS B SURFACE AG NON-REACT KONG NON-REACT KONG 10/15/2022 2:[address] [facility] Comment:HBsAg NOT DETECTED. HEP B CORE IGM NON-REACT KONG NON-REACT KONG 10/15/2022 2:[address] [facility] Comment: IgM ANTI HBc NOT DETECTED. DOES NOT EXCLUDE THE POSSIBILITY OF EXPOSURE TO OR INFECTION WITH HBV. NO RETEST REQUIRED. HIGH DOSES OF BIOTIN MAY INTERFERE WITH THIS TEST RESULT. CORRELATION TO CLINICAL HISTORY AND PRESENTATION RECOMMENDED. HAV IGM NON-REACT KONG NON-REACT KONG 10/15/2022 2:[address] [facility] Comment: IgM ANTI HAV NOT DETECTED. DOES NOT EXCLUDE THE POSSIBILITY OF EXPOSURE TO OR INFECTION WITH HAV. LEVELS OF IgM ANTI HAV MAY BE BELOW THE CUTOFF IN EARLY INFECTION. HEPATITIS C AB NON-REACT KONG NON-REACT KONG 10/15/2022 2:[address] [facility] Comment: ANTIBODIES TO HCV NOT DETECTED. DOES NOT EXCLUDE THE POSSIBILITY OF EXPOSURE TO HCV. 10/15/2022 7:15 AM CDT Marko Manuel MD LABORATORY Final Result [facility] [address] [place] [address], [id number] from Last 3 Months or Most Recently Relevant to Health Maintenance [facility] * Full Code (Latest Code Status on File) Date Activated Date Inactivated Comments 10/29/2020 11:33 PM 11/02/2020 2:16 PM Care Teams Cosmetic Assembler Relationship Specialty Start Date End Date Earnest Joshi DO [address] [place] [address] PCP - General FAMILY PRACTICE 01/30/21 Santy Swift MD SURGERY 11/10/20 Marko Manuel MD [address] , [facility] [address] [place] [address] [place] Pig Handler INTERVENTIONAL CARDIOLOGY 05/31/21
--- OUTSIDE RECORDS SUMMARY | 2025-05-16 17:36 | XMS_ITS | Encounter Summary ---
Author Organization [facility] Address [address] [place] [address] Care Team Providers Care Mortgage Clerk Name Role Phone Santy Swift MD Unavailable Unavailable Earnest Joshi DO Primary Care Provider [phone] Marko Manuel MD Unavailable [phone] Encounter Details Date Type Department Care Team (Late st Contact Info) Description 10/24/2022 Woisio Message [facility] [place] [facility] [address] [place] [address] [facility] Provider CT Results Social History Tobacco Use Types Packs/Day Years Used Date Smoking Tobacco: Former Cigarettes 1 25 0 12/12/1995 - 12/11/2020 Alcohol Use Standard Drinks/Week Comments Yes 16.7 (1 standard drink = 0.6 oz pure alcohol) Sex and Gender Information Value Date Recorded Sex Assigned at Not on file Legal Sex Male 1:26 AM CDT Gender Identity Male 06/04/2021 7:43 AM PUBLIC WORKS MANAGER Sexual Orientation Straight 06/04/2021 7: 43 AM PUBLIC WORKS MANAGER COVID-19 Exposure Response Date Recorded In the [...] Description 10/05/2025 1:30 PM CDT [facility] [address] [place] [phone] Marko Manuel MD [address] [facility] [address] [place] [address] documented as of this encounter Goals Goal Patient Goal Type Associated Problems Recent Progress Patient-Stated? Author Safety Patient/family will have appropriate support at home upon discharge General No Sidra Garza RN documented as of this encounter Visit Diagnoses Not on filedocumented in this encounter Care Teams Mortgage Clerk Relationship Specialty Start Date End Date Earnest Joshi DO [address] [place] [address] PCP - General FAMILY PRACTICE 01/30/21 Santy Swift MD SURGERY 11/10/20 Marko Manuel MD [address] [facility] [address] [place] [address] [place] Belt Machine Operator INTERVENTIONAL CARDIOLOGY 05/31/21 documented as of this encounter
== END 2025-05-16 17:34 | disposition home or self-care (01) ==
LOC: CHSLAB 17:33
PROVIDERS: PCP Family Medicine; Visit Provider Family Medicine
DX: Z12.11 Encounter for screening for malignant neoplasm of colon (principal)
CPT/HCPCS: 36415

== ENCOUNTER 2025-06-10 11:44 | Outpatient (CLI) | payer OTHER, SELFPAY ==
--- OUTSIDE RECORDS SUMMARY | 2025-06-10 11:46 | XMS_ITS | Encounter Summary ---
Author Organization [facility] Address [address] [place] [address] Care Team Providers Care Transplant Coordinator Name Role Phone Santy Swift MD Unavailable Unavailable Earnest Joshi DO Primary Care Provider [phone] Marko Manuel MD Unavailable [phone] Encounter Details Date Type Department Care Team (Late st Contact Info) Description 10/24/2022 Picapica Message Real Time Tomography [facility] [address] [place] [phone] [facility] Provider PS-Lipid results Social History [...] CDT Gender Identity Male 06/04/2021 7:43 AM BLACKSMITH HELPER Sexual Orientation Straight 06/04/2021 7: 43 AM BLACKSMITH HELPER COVID-19 Exposure Response Date Recorded In the [...] Description 10/05/2025 1:30 PM CDT [facility] [address] [place] [phone] Marko Manuel MD [address] [facility]1] [address] [place] [address] documented as of this encounter Goals Goal Patient Goal Type Associated Problems Recent Progress Patient-Stated? Author Safety Patient/family will have appropriate support at home upon discharge General No Sidra Garza RN documented as of this encounter Visit Diagnoses Not on filedocumented in this encounter Care Teams Transplant Coordinator Relationship Specialty Start Date End Date Earnest Joshi DO [address] [place] [address] PCP - General FAMILY PRACTICE 01/30/21 Santy Swift MD SURGERY 11/10/20 Marko Manuel MD [address] , [facility] [address] [place] [address] [place] Aircraft Engine Mechanic INTERVENTIONAL CARDIOLOGY 05/31/21 documented as of this encounter
--- OUTSIDE RECORDS SUMMARY | 2025-06-10 11:46 | XMS_ITS | Clinical Summary ---
Author Organization [facility] Address [address] [place] [address] Care Team Providers Care Safety Professional Name Role Phone Santy Swift MD Unavailable Unavailable Earnest Joshi DO Primary Care Provider [phone] Marko Manuel MD Unavailable [phone] Allergies Active Allergy Reactions Criticality Noted Date [...] CDT Gender Identity Male 06/04/2021 7:43 AM CUTTING SUPERVISOR Sexual Orientation Straight 06/04/2021 7: 43 AM CUTTING SUPERVISOR Last Filed Vital Signs Vital Sign Reading [...] Upcoming Encounters Date Type Department Care Team ([facility] Contact Info) Description 10/05/2025 1:30 PM CDT Office Visit [facility] [address] [place] [address] Marko Manuel MD [address] [facility] [address] [place] [address] Health Maintenance Due Date Last Done Comments [...] home upon discharge General No Sidra Garza 3rd pressman Procedure Name Priority Date/Time Associated Diagnosis Comments HEPATITIS PANEL,ACUTE Routine 10/15/2022 7:15 AM CDT Superior mesenteric artery aneurysm from Last 3 Months or Most Recently Relevant to Health Maintenance Results * HEPATITIS PANEL,ACUTE (10/15/2022 7:15 AM CDT) HEPATITIS B SURFACE AG NON-REACT KONG NON-REACT KONG 10/15/2022 2:14 PM CDT [facility] Comment:HBsAg NOT DETECTED. HEP B CORE IGM NON-REACT KONG NON-REACT KONG 10/15/2022 2:14 PM CDT [facility] Comment: IgM ANTI HBc NOT DETECTED. DOES NOT EXCLUDE THE POSSIBILITY OF EXPOSURE TO OR INFECTION WITH HBV. NO RETEST REQUIRED. HIGH DOSES OF BIOTIN MAY INTERFERE WITH THIS TEST RESULT. CORRELATION TO CLINICAL HISTORY AND PRESENTATION RECOMMENDED. HAV IGM NON-REACT KONG NON-REACT KONG 10/15/2022 2:14 PM CDT [facility] Comment: IgM ANTI HAV NOT DETECTED. DOES NOT EXCLUDE THE POSSIBILITY OF EXPOSURE TO OR INFECTION WITH HAV. LEVELS OF IgM ANTI HAV MAY BE BELOW THE CUTOFF IN EARLY INFECTION. HEPATITIS C AB NON-REACT KONG NON-REACT KONG 10/15/2022 2:14 PM CDT [facility] Comment: ANTIBODIES TO HCV NOT DETECTED. DOES NOT EXCLUDE THE POSSIBILITY OF EXPOSURE TO HCV. 10/15/2022 7:15 AM CDT Marko Manuel MD LABORATORY Final Result [facility] [address] [place] [address], [phone] from Last 3 Months or Most Recently Relevant to Health Maintenance [facility] * Full Code (Latest Code Status on File) Date Activated Date Inactivated Comments 10/29/2020 11:33 PM 11/02/2020 2:16 PM Care Teams Safety Professional Relationship Specialty Start Date End Date Earnest Joshi DO [address] [place] [address] PCP - General FAMILY PRACTICE 01/30/21 Santy Swift MD SURGERY 11/10/20 Marko Manuel MD [address] , [facility] [address] [place] [address] [place] Production Support Specialist INTERVENTIONAL CARDIOLOGY 05/31/21
--- OUTSIDE RECORDS SUMMARY | 2025-06-10 11:46 | XMS_ITS | Clinical Summary ---
Author Organization [facility] Address [address] [place] [address] Care Team Providers Care Pyrotechnic Mixer Name Role Phone Phil Elliott MD Primary Care Provider [phone] Source Comments [facility],non-owned Affiliates and Associated Physician Practices is amultiple site organization consisting of ambulatory clinics and hospital sitesin [place], [place], [place] and [place]. This disclosure is being madepursuant to the Care Everywhere program and may not contain all information available regarding this patient. Last updated 18.[facility] Allergies No known active allergies Medications * Be aware that medications may not be up to date on this document. Alwaysverify current medications with the patient. fluticasone propionate (FLONASE) 50 MCG/ACT nasal spray [place] 2 sprays into each nostril once daily 06/26/2020 Active LOSARTAN POTASSIUM PO Active anastrozole (ARIMIDEX) 1 MG tablet Take 1 mg by mouth once daily Active Multiple Vitamin (MULTI-VITAMIN DAILY PO) Active Glucosamine-Cho ndroitin (GLUCOSAMINE CHONDR COMPLEX PO) Active Active Problems Problem Noted Date Diagnosed Date Pain of left forearm 07/10/2020 Immunizations Immunization Administration Dates Next Due INFLUENZA VACCINE 03/24/2020 Social History Tobacco Use Types Packs/Day Years Used Date Smoking Tobacco: Every Day Smokeless Tobacco: Never Sex and Gender Information Value Date Recorded Sex Assigned at Not on file Legal Sex Male 1:51 PM UTILIZATION SPECIALIST Gender Identity Not on file Sexual Orientation Not on file Last Filed Vital Signs Vital Sign Reading Time Taken Comments Blood Pressure - - Pulse - - Temperature - - Respiratory Rate - - Oxygen Saturation - - Inhaled Oxygen Concentration - - Weight 108.9 kg (240 lb) 07/10/2020 10:38 AM UTILIZATION SPECIALIST Height 180.3 cm (5' 11) 07/10/2020 10:38 AM UTILIZATION SPECIALIST Body Mass Index 33.47 07/10/2020 10:38 AM UTILIZATION SPECIALIST Plan of Treatment Health Maintenance Due Date Last Done Comments COLOGUARD (AGES 45-75) - COL ON CA SCREENING 1979 COLON MONITORING 1979 COLONOSCOPY - COLON CA SCREENING 1979 CT COLONOGRAPHY - COLON CA SCREENING 1979 Colorectal Cancer Screening 1979 FIT - COLON CA SCREENING 1979 FLEX SIG - COLON CA SCREENING 1979 LIPID TESTING 1979 HIV SCREENING 11/30/1994 HEPATITIS C SCREENING 11/26/1997 DTAP/TDAP/TD VACCINES (1 - Tdap) 11/30/1998 HEPATITIS B VACCINE (1 of 3 - 19+ 3-dose series) 11/30/1998 HPV VACCINE (1 - 3-dose SCDM series) 11/30/2006 SCREENING FOR DIABETES 07/10/2020 DEPRESSION SCREENING 06/22/2024 COVID-19 VACCINE (1 - 2024-2 6 season) 2025 INFLUENZA VACCINE (#1) 2025 03/24/2020 ZOSTER VACCINE (1 of 2) 11/30/2029 HIB VACCINE Aged Out No longer eligi ble based on patient's age to complete this topic MENINGOCOCCAL (Group B) VACC INE SHARED DECISION-MAKING Aged Out No longer eligibl e based on patient's age to complete this topic MENINGOCOCCAL GROUPS A/C/Y/W VACCINE Aged Out No longer eligible b ased on patient's age to complete this topic PNEUMOCOCCAL VACCINE Aged Out No long er eligible based on patient's age to complete this topic Insurance ANTHEM ANTHEM Care Teams Pyrotechnic Mixer Relationship Specialty Start Date End Date Phil Elliott MD [address] [place] [id number] PCP - General 07/09/20
--- OUTSIDE RECORDS SUMMARY | 2025-06-10 11:46 | XMS_ITS | Encounter Summary ---
Author Organization [facility] Address [address] [place] [address] Care Team Providers Care Chief Order Dispatcher Name Role Phone Santy Swift MD Unavailable Unavailable Earnest Joshi DO Primary Care Provider [phone] Marok Manuel MD Unavailable [phone] Encounter Details Date Type Department Care Team (Late st Contact Info) Description 10/24/2022 Crosswise Message [facility] [place] [facility] [address] [place] [phone] [facility] Provider CT Results Social History Tobacco Use Types Packs/Day Years Used Date Smoking Tobacco: Former Cigarettes 1 25 0 12/12/1995 - 12/11/2020 Alcohol Use Standard Drinks/Week Comments Yes 16.7 (1 standard drink = 0.6 oz pure alcohol) Sex and Gender Information Value Date Recorded Sex Assigned at Not on file Legal Sex Male 1:26 AM CDT Gender Identity Male 06/04/2021 7:43 AM EXEC. CREATIVE DIRECTOR Sexual Orientation Straight 06/04/2021 7: 43 AM EXEC. CREATIVE DIRECTOR COVID-19 Exposure Response Date Recorded In the [...] Description 10/05/2025 1:30 PM CDT [facility] [place] [facility] [address] [place] [id number] Marko Manuel MD [address] [facility] [address] [place] [address] documented as of this encounter Goals Goal Patient Goal Type Associated Problems Recent Progress Patient-Stated? Author Safety Patient/family will have appropriate support at home upon discharge General No Sidra Garza RN documented as of this encounter Visit Diagnoses Not on filedocumented in this encounter Care Teams Chief Order Dispatcher Relationship Specialty Start Date End Date Earnest Joshi DO [address] [place] [address] PCP - General FAMILY PRACTICE 01/30/21 Santy Swift MD SURGERY 11/10/20 Marko Manuel MD [address] [facility] [address] [place] [address] Alexandria Drapery Examiner INTERVENTIONAL CARDIOLOGY 05/31/21 documented as of this encounter
[2025-06-10 12:02] LABS: Hematocrit 46.3 % (40.0-54.0); Hemoglobin 15.6 g/dL (14.0-18.0); Immature Granulocyte Percent A 0.3 % (0.0-0.0); Lymphocytes Absolute Auto 2.23 K/mm3 (1.10-4.50); Mean Corpuscular HGB Conc 33.7 g/dL (32-36); Mean Corpuscular Hemoglobin 30.7 pg (27.0-31.0); Mean Corpuscular Volume 91.1 fL (78.0-102.0); Nucleated Red Blood Cells Absolute Auto 0.00 K/mm3 (0.00-0.00); Nucleated Red Blood Cells Perc 0.0 % (0-0.0); Platelet Count Result 298 K/mm3 (150-420); Red Blood Count 5.08 M/mm3 (4.70-6.10); White Blood Count 9.5 K/mm3 (4.8-10.8)
[2025-06-10 12:55] LABS: Alanine Aminotransferase 51 U/L (6-50); Albumin Level 4.6 g/dL (3.5-5.1); Alkaline Phosphatase 89 U/L (38-126); Anion Gap 10 mmol/L (4-12); Aspartate Amino Transferase 38 U/L (17-59); Bilirubin,Total 0.7 mg/dL (0.2-1.3); Blood Urea Nitrogen 10 mg/dL (9-20); Calcium 9.3 mg/dL (8.4-10.2); Carbon Dioxide 26 mmol/L (22-30); Chloride 106 mmol/L (98-107); Cholesterol 238 mg/dL (0-200); Estimated Glomerular Filt Rate > 60; Glucose 99 mg/dL (65-110); HDL Direct 55 mg/dL; Osmolality Calculated 293 mOsm/kg (285-295); Potassium 3.3 mmol/L (3.4-5.0); Sodium 142 mmol/L (137-145); Total Protein 7.7 g/dL (6.3-8.2); Triglycerides 267 mg/dL (<150)
[2025-06-10 13:25] LABS: Thyroid Stimulating Hormone Reflex 0.563 uIU/mL (0.465-4.68)
[2025-06-14 00:07] LABS: Free Testosterone (Direct) 14.5 pg/mL (6.8-21.5)
== END 2025-06-10 11:45 | disposition home or self-care (01) ==
PROVIDERS: Family Medicine; PCP Nurse Practitioner Family; Visit Provider Nurse Practitioner Family
DX: D72.829 Elevated white blood cell count, unspecified (principal); R79.89 Other specified abnormal findings of blood chemistry; I10 Essential (primary) hypertension; E03.9 Hypothyroidism, unspecified
CPT/HCPCS: 36415; 80053; 80061; 84402; 84403; 84443; 85025